=== PATIENT | male | born 1955 | race Caucasian/White ===

== ENCOUNTER 2023-06-06 04:34 | Outpatient (CLI) | payer MEDICARE, SELFPAY ==
[2023-06-06 12:17] LABS: Absolute Basophil Count 0.04 10^3/uL (0.0-0.2); Absolute Eosinophil Count 0.15 10^3/uL (0.0-0.7); Absolute Lymphocyte Count 0.98 10^3/uL (1.2-3.4); Absolute Neutrophil Count 2.05 10^3/uL (1.2-6.7); Basophils % 1.1; Eosinophils % 4.3; HCT 43.8 % (40.0-50.0); HGB 14.4 g/dL (13.5-17.5); Lymphocytes % 27.8; MCH 29.8 pg (27.0-33.0); MCHC 32.9 % (32.0-36.0); MCV 91 fL (80-95); MPV 10.2 fL (8.0-11.0); Monocytes % 8.5; Neutrophils % 58.3; Platelet Count 180 10^3/uL (130-400); RBC 4.84 10^6/uL (4.36-5.78); RDW 12.3 % (11.8-14.1); RDW-SD 40.1 fL; WBC 3.52 10^3/uL (4.4-10.8)
[2023-06-06 12:48] LABS: ALT 39 U/L (16-63); AST 29 U/L (15-37); Albumin 3.5 g/dL (3.4-5.0); Alkaline Phosphatase 59 U/L (46-116); Bilirubin, Direct 0.1 mg/dL (0.0-0.2); Bilirubin, Total 0.4 mg/dL (0.2-1.0); Total Protein 7.5 g/dL (6.4-8.2)
[2023-06-06 13:04] LABS: Calculated LDL 111 mg/dL (<100); Cholesterol 184 mg/dL (<200); HDL Cholesterol 58 mg/dL (40-60); Triglyceride 75 mg/dL (<150)
== END 2023-06-06 04:35 | disposition home or self-care (01) ==
LOC: LOS 04:34
PROVIDERS: PCP Nurse Practitioner Family; Visit Provider Nurse Practitioner Family
DX: E78.5 Hyperlipidemia, unspecified (principal); K75.4 Autoimmune hepatitis
CPT/HCPCS: 36415; 80061; 80076; 85025

== ENCOUNTER → 2023-08-28 10:58 | Outpatient (BNVA) | payer MEDICARE, SELFPAY | PROVIDERS: PCP Nurse Practitioner Family; Referring Provider Nurse Practitioner Family; Visit Provider Physical Therapy Assistant | DX: Z12.11 Encounter for screening for malignant neoplasm of colon (principal) ==

== ENCOUNTER 2023-09-11 07:41 | Day surgery (SDC) | payer MEDICARE, SELFPAY ==
--- NOTE | 2023-09-10 21:29 | PDOC.DSDIS_ITS ---
Date of service: 09/11/23 Time of Service: 09:31 Discharge Plan Disposition Patient Disposition: Home Condition: Good Discharge Details Reason For Visit: screening colonocsopy Attending Provider: Donald Talavera Primary Care Provider: Sylvia Moyer Home Meds and New Rx's Prescriptions: Continued ibuprofen [Advil] 200 mg tablet 200 mg PO Q6H PRN pyridostigmine bromide 60 mg tablet 60 mg PO TID simvastatin 40 mg tablet 40 mg PO DAILY mycophenolate mofetil 500 mg tablet 1,500 mg PO BID sildenafil 50 mg tablet 50 mg PO DAILY PRN Rx Instructions: administer 30 minutes to 4 hours before activity cholecalciferol (vitamin D3) 25 mcg (1,000 unit) capsule 25 mcg PO DAILY loratadine [Allergy Relief (loratadine)] 10 mg tablet 10 mg PO DAILY multivitamin Tablet 1 tab PO DAILY Discontinued bisacodyl [Dulcolax (bisacodyl)] 5 mg tablet,delayed release (DR/EC) 5 mg PO ONCE Qty: 4 0RF Rx Instructions: Take per colonoscopy instructions provided by ordering providers office polyethylene glycol 3350 17 gram/dose powder 17 g PO ONCE Qty: 238 0RF Rx Instructions: Take per colonoscopy instructions provided by ordering providers office Discharge Instructions Instructions: Diverticulosis (GEN), Diverticulosis Diet (GEN) Additional Instructions: Juan, we were able to complete your colonoscopy today without any difficulty. I did not see any tumors or polyps. Incidentally, you do have some diverticulosis. Diverticula are weak spots in the colon wall. They typically accumulate as we get older. These can become infected and inflamed, but hopefully that will never bother you. My general advice to patients with diverticulosis is to make sure that she maintain a healthy amount of fiber in your diet, staying regular, well-hydrated, and avoiding symptoms of constipation. Have attached a little bit of information here regarding divertic ular disease. With a negative colonoscopy again today, the recommendation is for a follow-up in 10 years. If you have any questions in the meantime, please do not hesitate to ask. 1. If tolerated, consume a soft, low fiber diet for 1-2 days. 2. Do not drive, drink alcohol, operate machinery, make critical decisions, or do activities that require coordination or balance for 24 hours. 3. Because air was put into your colon during the procedure, expelling air from your rectum (passing gas or farting) is normal. 4. You may not have a bowel movement for 1-3 days because of the colonoscopy pr ep. This is normal. 5. Go directly to the emergency room if you notice any of the following: Develop chills (warm to touch), or if you have a thermometer and your temperature is above 101 Difficulty breathing or difficultly swallowing Persistent vomiting Severe abdominal pain, other than gas cramps Severe chest pain Black, tarry stools Any bleeding ? exceeding one tablespoon 6. Call your physician if the site where your intravenous was started becomes red, swollen, painful, and warm to touch. 7. Your physician has reviewed your pre-procedure medications. Please continue to take those medications as previously ordered. You will be given specific information/education regarding any changes to your medications before leaving. Activity:: Activity as Tolerated Diet:: As Tolerated Discharge Orders Discharge Orders: Discharge Order (Routine); Ordered 09/10/23 Ordered By: Donald Talavera DS: Diagnosis Discharge Diagnosis (1) Screen for colon cancer: Status: Acute Asessment and Plan: Sigmoid diverticulosis, otherwise negative screening colonoscopy
--- NOTE | 2023-09-10 21:30 | W.COLOREPORT ---
Date of service: 09/11/23 Time of Service: 09:33 Colonoscopy Report Date of procedure: 09/11/23 Pre-op diagnosis general: screening colonoscopy Post-op diagnosis procedure note: other (Diverticulosis) Procedure: Colonoscopy Surgeon: Donald Talavera Anesthesia Type: General:No Airway Estimated blood loss (mL): 0 Pathology: none sent Complications: None Disposition: same day Indications: Juan is a 68 year old man who needs his next screening colonoscopy Prep: Miralax/Dulcolax Procedure Start Time: 09:00 Procedure End Time: 09:20 Retraction Time: 9 Findings: Diverticulosis Procedure Description: After the induction of anesthetic care, and with the patient in left lateral decubitus position, I began by performing an external anorectal exam.? Perineum and skin were normal, as was the anal verge.? There was no evidence of external hemorrhoids.? Next, I performed a digital rectal exam.? I did not appreciate any abnormal findings.? Next, I advanced a colonoscope into the rectal vault.? I performed retroflexion.? This was normal.? Using insufflation, I then advanced the colonoscope beyond the rectal folds and into the sigmoid colon before advancing towards the cecum.? There was extensive sigmoid diverticulosis. I was able to maintain the true lumen without much difficulty. The colon is long and a little bit tortuous. the scope was noted to be in the cecum by identification of the ileocecal valve and appendiceal orifice.? I then began withdrawing the colonoscope using repeated irrigation as necessary for full evaluation of the colonic mucosa. ?Once the scope was withdrawn to the level of the rectum, great care was taken to examine portions of the rectal folds.? I did not see any signs of tumors, polyps, or any other abnormalities aside from the diverticulosis mentioned above. Finally, the scope was withdrawn and the patient was brought to the same-day surgery recovery unit as the anesthetic wore off. ?The findings and instructions were shared with the patient prior to discharge. [place] Bowel Prep [place] Bowel Prep Right Colon: 3 Left Colon: 2 Transverse Colon: 3 Total Score: 8
[2023-09-11 08:04] VITALS: BP 140/80; PULSE 76; RESP 16; TEMP 36.3; O2SAT 76
[2023-09-11] MEDS: Lactated Ringers 1,000 ML 80 ML IV (08:07)
[2023-09-11 08:50] VITALS: BMI 25.0
--- NOTE | 2023-09-11 08:50 | ANES.PREOP_ITS ---
General Info Date of Service Date Performed: 09/11/23 Height: 5 ft 10 in Weight: 79 kg Body Mass Index (BMI): 25.0 Surgical Procedure: Operation Date: 09/11/23 09:05 Proposed Procedure Side Surgeon aide Talavera MD Meds Allergies and Home Medications Allergies Allergy/AdvReac Type Severity Reaction Status Date / Time Mercaptopurine Analogues Allergy Intermediate Nausea Unverified 09/11/23 08:02 (Thiopurin azathioprine Allergy Unknown Unverified 09/11/23 08:02 Home Medication Medication Instructions Recorded cholecalciferol (vitamin D3) 25 25 mcg PO DAILY 01/16/23 mcg (1,000 unit) capsule ibuprofen 200 mg tablet (Advil) 200 mg PO Q6H PRN 01/16/23 loratadine 10 mg tablet (Allergy 10 mg PO DAILY 01/16/23 Relief (loratadine)) multivitamin 1 tab PO DAILY 01/16/23 mycophenolate mofetil 500 mg tablet 1,500 mg PO BID 01/16/23 pyridostigmine bromide 60 mg tablet 60 mg PO TID 01/16/23 sildenafil 50 mg tablet 50 mg PO DAILY PRN 01/16/23 simvastatin 40 mg tablet 40 mg PO DAILY 01/16/23 Current Visit Medications: Current Medications Generic Name Dose Route Start Last Admin Trade Name Freq PRN Reason Stop Dose Admin Hyoscyamine Sulfate 0.125 mg 09/10/23 21:32 Hyoscyamine 0.125 Mg Sl/Oral/Chew SL 10/10/23 21:31 DIRECTED PRN Ringer's Solution 1,000 mls @ 80 mls/hr 09/11/23 06:00 09/11/23 08:07 IV 09/11/23 23:59 80 mls/hr INFUSION MELO Administration IV Miscellaneous Supplies 1 each 09/11/23 06:00 Iv Access IV 09/11/23 23:59 DIRECTED MELO Ondansetron HCl 4 mg 09/10/23 21:32 Ondansetron 4 Mg/2 Ml Vial IVP 10/10/23 21:31 Q4H PRN PRN Nausea / Vomiting Sodium Chloride 0 ml 09/11/23 06:00 Normal Saline Flush 10 Ml Syr IV 09/11/23 23:59 PRN PRN Sodium Chloride 0 ml 09/11/23 06:00 Normal Saline 10 Ml Vial IJ 09/11/23 23:59 DIRECTED PRN Sterile Water 0 ml 09/11/23 06:00 Water,Injection,Sterile 10 Ml Vial IJ 09/11/23 23:59 DIRECTED PRN [facility] Active Problems Active Problems: Problem Status Onset Code Screen for colon cancer Z12.11 Snoring R06.83 Environmental allergies Z91.09 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 Raynauds syndrome I73.00 Osteopenia M85.80 Hepatitis, autoimmune K75.4 Hyperlipidemia E78.5 Medical History Medical History Fracture of left leg Compound spiral fracture of lower left leg Nasal turbinate hypertrophy Nasal septal deviation Ptosis Renal cyst Tobacco Smoking/Tobacco Use Status: Former Tobacco Use Passive smoking exposure: Yes Second hand exposure: Yes Alcohol Alcohol Intake: former Substance Use Substance use: Never Substance use type: does not use Vital Signs and Lab Results Vital Signs Most Recent Vital Signs in EMR: Most Recent Vital Signs Temp Pulse Resp BP Pulse Ox 36.3 C L 76 16 140/80 76 L 09/11/23 08:04 09/11/23 08:04 09/11/23 08:04 09/11/23 08:04 09/11/23 08:04 Lab Results Blood Type / Crossmatch: No Data to Display Complete Blood Count: White Blood Count 4.05 10^3/uL (4.4-10.8) L 09/04/23 17:02 Red Blood Count 4.53 10^6/uL 09/04/23 17:02 Hemoglobin 13.6 g/dL 09/04/23 17:02 Hematocrit 40.2 % 09/04/23 17:02 Platelet Count 174 10^3/uL 09/04/23 17:02 Complete Metabolic Panel: Albumin 4.4 g/dL 09/04/23 17:06 Liver Function Panel: Alanine Aminotransferase (ALT/SGPT) 20 U/L 09/04/23 17: 08 Aspartate Amino Transf (AST/SGOT) 32 U/L 09/04/23 17:08 Coagulation Panel: No Data to Display Cardiac Panel: No Data to Display Arterial Blood Gas: No Data to Display Venous Blood Gas: No Data to Display Pancreas Panel: No Data to Display Thyroid Panel: No Data to Display Infectious Disease: No Data to Display Blood Cultures: No Data to Display Toxicology Panel: No Data to Display Anesthesia Assessment and Plan Anesthesia History Personal History: No History of Anesthesia Complications Family History: No Family History of Anesthesia Complications Exercise Tolerance Exercise Tolerance: Metabolic Equivalents>4 Pertinent Negatives Pertinent Negatives: No Symptoms of GERD Cardiac & Pulmonary Exam Cardiac Exam: Normal S1/S2 Heart Sounds Pulmonary Exam: Clear Bilateral Breath Sounds Implantable Cardiac Device Does patient have a Pacemaker or an ICD?: No Airway Exam Known Difficult Airway: No Mallampati Class: 2 Mouth Opening: Normal (> 3cm) Thyromental Distance: Greater than 3 cm Neck Range of Motion: Full ROM Neck Circumference: Normal Teeth Condition: Normal Dentition ASA Classification ASA Score: ASA 2 Emergency Case?: No NPO Status NPO Status: NPO Clears >2 hours, Solids >8 hours Anesthesia Plan Resuscitation Status: Full Code Anesthesia Technique: General Anesthesia Airway Planned: Natural Airway Monitors Used: Standard Monitors
[2023-09-11 09:29] VITALS: BP 77/52; PULSE 72; RESP 16; TEMP 36.6; O2SAT 98
--- NOTE | 2023-09-11 09:37 | W.ANESPOSTOP ---
Postoperative Evaluation Date, Time and Location Date Performed: 09/11/23 Time Performed: 09:37 Patient Location: Day Surgery Unit Vital Signs Most Recent Imported Vital Signs: Most Recent Vital Signs Temp Pulse Resp BP Pulse Ox 36.6 C 72 16 77/52 L 98 09/11/23 09:29 09/11/23 09:29 09/11/23 09:29 09/11/23 09:29 09/11/23 09:29 Pain Score Most Recent Pain Score: Most Recent Pain Score Pain Level 0 09/11/23 08:04 Assessment Mental Status: Awake (Alert & Oriented to Patient Baseline) Airway and Respiratory Function: Patent airway with normal (patient baseline) respiratory exam Cardiovascular Function: Hemodynamically Stable Hydration Status: Adequately Hydrated Nausea & Vomiting: No Nausea or Vomiting Pain: Pt. Denies Any Pain Peripheral Nerve Block: Patient did not receive a nerve block
[2023-09-11 10:00] VITALS: BP 103/69; PULSE 63; RESP 16; TEMP 36.3; O2SAT 100
== END 2023-09-11 10:43 | disposition home or self-care (01) ==
LOC: SUR 07:41
PROVIDERS: PCP Nurse Practitioner Family; Visit Provider Surgery
PROC: 0DJD8ZZ Inspection of Lower Intestinal Tract, Via Natural or Artificial Opening Endoscopic (ICD-10-PCS; CPT 45378; principal; 2023-09-11 09:00)
DX: Z12.11 Encounter for screening for malignant neoplasm of colon (principal); K57.30 Diverticulosis of large intestine without perforation or abscess without bleeding
CPT/HCPCS: G0121; J2704

== ENCOUNTER 2023-12-03 05:35 | Outpatient (CLI) | payer MEDICARE, SELFPAY ==
[2023-12-03 13:43] LABS: Abs Immature Grans 0.01 10^3/uL (0.0-0.06); Absolute Basophil Count 0.03 10^3/uL (0.0-0.2); Absolute Eosinophil Count 0.05 10^3/uL (0.0-0.7); Absolute Lymphocyte Count 1.09 10^3/uL (1.2-3.4); Absolute Monocyte Count 0.28 10^3/uL (0.1-0.8); Absolute Neutrophil Count 2.92 10^3/uL (1.2-6.7); Basophils % 0.7; Eosinophils % 1.1; HCT 40.1 % (40.0-50.0); HGB 13.1 g/dL (13.5-17.5); Immature Grans % 0.2; Lymphocytes % 24.9; MCH 29.5 pg (27.0-33.0); MCHC 32.7 % (32.0-36.0); MCV 90 fL (80-95); MPV 9.3 fL (8.0-11.0); Monocytes % 6.4; Neutrophils % 66.7; Platelet Count 212 10^3/uL (130-400); RBC 4.44 10^6/uL (4.36-5.78); RDW 12.2 % (11.8-14.1); RDW-SD 39.9 fL; WBC 4.38 10^3/uL (4.4-10.8)
[2023-12-03 14:14] LABS: ALT 22 U/L (16-63); AST 18 U/L (15-37); Albumin 3.5 g/dL (3.4-5.0); Alkaline Phosphatase 66 U/L (46-116); Anion Gap 7.5 mmol/L (3-11); BUN 22 mg/dL (7-18); Bilirubin, Total 0.4 mg/dL (0.2-1.0); CO2 27.5 mmol/L (21.0-32.0); CREATININE 1.1 mg/dL (0.70-1.30); Calcium 9.1 mg/dL (8.5-10.1); Chloride 108 mmol/L (98-107); Estimated GFR 72.22 (mL/min/1.73m2); Glucose 163 mg/dL (74-106); Potassium 4.3 mmol/L (3.5-5.1); Sodium 143 mmol/L (136-145); Total Protein 6.8 g/dL (6.4-8.2)
[2023-12-03 14:23] LABS: Bilirubin, Direct 0.1 mg/dL (0.0-0.2)
== END 2023-12-03 05:36 | disposition home or self-care (01) ==
LOC: LBO 05:35
PROVIDERS: PCP Nurse Practitioner Family; Visit Provider Nurse Practitioner Family
DX: K75.4 Autoimmune hepatitis (principal)
CPT/HCPCS: 36415; 80053; 82248; 85025

== ENCOUNTER 2024-02-10 05:04 | Outpatient (CLI) | payer MEDICARE, SELFPAY ==
[2024-02-10 15:18] LABS: NT-proBNP 293 pg/mL (<300)
[2024-02-12 12:10] LABS: Lyme Ab w Rflx to Lyme Confirm Negative (Negative)
[2024-02-13 21:06] LABS: Anaplasma phagocytophilum Negative (Negative); B. miyamotoi PCR Negative (Negative); Babesia divergens/MO-1 Negative (Negative); Babesia duncani Negative (Negative); Babesia microti Negative (Negative); Ehrlichia chaffeensis Negative (Negative); Ehrlichia ewingii/canis Negative (Negative); Ehrlichia muris eauclairensis Negative (Negative)
== END 2024-02-10 05:05 | disposition home or self-care (01) ==
LOC: LBO 05:04
PROVIDERS: PCP Nurse Practitioner Family; Visit Provider Nurse Practitioner Family
DX: R06.02 Shortness of breath (principal); R53.83 Other fatigue; R00.2 Palpitations
CPT/HCPCS: 36415; 87798; 83880; 86618

== ENCOUNTER → 2024-02-18 01:07 | Outpatient (CLI) | payer MEDICARE, SELFPAY ==
[2024-02-18 07:38] LABS: Abs Immature Grans 0.01 10^3/uL (0.0-0.06); Absolute Basophil Count 0.03 10^3/uL (0.0-0.2); Absolute Eosinophil Count 0.07 10^3/uL (0.0-0.7); Absolute Lymphocyte Count 1.06 10^3/uL (1.2-3.4); Absolute Monocyte Count 0.35 10^3/uL (0.1-0.8); Absolute Neutrophil Count 2.56 10^3/uL (1.2-6.7); Basophils % 0.7 %; Eosinophils % 1.7 %; HCT 43.1 % (40.0-50.0); HGB 14.2 g/dL (13.5-17.5); Immature Grans % 0.2 %; MCHC 32.9 % (32.0-36.0); MCV 91 fL (80-95); Monocytes % 8.6 %; Neutrophils % 62.8 %; Platelet Count 165 10^3/uL (130-400); RBC 4.74 10^6/uL (4.36-5.78); RDW 12.2 % (11.8-14.1); RDW-SD 40.6 fL; WBC 4.08 10^3/uL (4.4-10.8)
[2024-02-18 07:49] LABS: BUN 18 mg/dL (7-18); CREATININE 1.1 mg/dL (0.70-1.30); Estimated GFR 72.22 (mL/min/1.73m2)
[2024-02-18] MEDS: Barium Sulfate 2% W/V-Berry Smoothie 450 ML BTL PO ×2 (08:58→08:59)
[2024-02-18] MEDS: Normal Saline - Diluent 50 ML VIAL IJ (09:04)
[2024-02-18] MEDS: Omnipaque 350 MG/ML 500 ML BTL-Imaging package 100 ML IJ (09:05)
== END ==
PROVIDERS: PCP Nurse Practitioner Family; Visit Provider Psychiatry & Neurology Neurology
DX: G70.00 Myasthenia gravis without (acute) exacerbation (principal); R53.1 Weakness; R53.82 Chronic fatigue, unspecified; D84.9 Immunodeficiency, unspecified
CPT/HCPCS: 84520; 82565; 85025

== ENCOUNTER → 2024-02-27 01:16 | Outpatient (CLI) | payer MEDICARE, SELFPAY ==
--- NOTE | 2024-02-27 | DI.CT_ITS ---
Exam(s) CT CHEST/ABD/PEL W EXAM: CT CHEST/ABD/PEL W CLINICAL HISTORY: WEAKNESS, MYASTHENIA GRAVIS, CHRONIC FATIGUE, IMMUNOSUPPRESSION. TECHNIQUE: Imaging Protocol: Axial computed tomography images with coronal and sagittal reformatted images were created and reviewed CONTRAST MATERIAL: Intravenous: Omnipaque 350 Contrast volume:100 ml Oral: Yes. Oral contrast was also administered for bowel opacification. COMPARISON: No exams were available for comparison FINDINGS: CHEST: LUNGS: There are benign-appearing thin walled bullae in both lung schilling the largest measuring 5.4 x 4.0 cm (right middle lobe). These do not contain fluid levels. There are no pulmonary infiltrates n or pleural effusions. There is a small 4 millimeter noncalcified nodule in the left lower lobe (seri es 4, image 32) no other lung nodules evident. MEDIASTINUM: There is no hilar nor mediastinal adenopathy. No evidence of thymus mass, given the hist ory here. Thyroid gland exhibits normal size and no obvious nodules. CARDIAC: Heart size is normal. There is no pericardial effusion.Caliber of the thoracic aorta is wit hin normal limits. OSSEOUS: No significant osseous lesions.No fractures.. Other: Mild bilateral gynecomastia ABDOMEN: There is no ascites. LIVER: There are no focal hepatic lesions nor dilatation of intrahepatic ducts. GALLBLADDER/BILIARY: No obvious gallbladder pathology. CBD is not dilated. PANCREAS: No evidence of pancreatic mass nor dilatation of the pancreatic duct. SPLEEN: Spleen is not enlarged. There are no intrasplenic lesions. Splenic and portal veins are lam nt. ADRENALS: There are no significant adrenal masses. KIDNEYS: No calculi nor hydronephrosis. No solid renal masses. Small benign cortical cysts noted in b oth kidneys which should not require further imaging workup. ABDOMINAL AORTA: No significant abdominal aortic aneurysm. 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 There is no right-sided IVC below the renal vein level. LYMPH NODES: There is no retroperitoneal nor paraaortic adenopathy. ABDOMINAL WALL: No evidence of significant anterior abdominal wall nor inguinal hernia. GI: There is sigmoid diverticulosis. No obvious acute diverticulitis. No free fluid. PELVIS: LYMPH NODES: There is no intrapelvic nor inguinal adenopathy. GI: No evidence of appendicitis. URINARY BLADDER: No calculi nor masses evident REPRODUCTIVE: Mildly enlarged and lobulated prostate gland which indents into the bladder base. OSSEOUS: No significant osseous lesions. Multilevel disc space narrowing L3-4 and L4-5 levels. No l isthesis. No fractures. IMPRESSION: 1. Mildly enlarged prostate gland which indents the bladder base. Recommend PSA testing. 2. 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 This left-sided IV C drains into the left renal vein. 3. There is a small 4 millimeter nodule in the left lower lobe. No other lung nodules evident. Mult iple benign appearing bullae are noted in both lungs. 4. No mediastinal masses, given the history of myasthenia gravis. 5. Sigmoid diverticulosis. No evidence of acute diverticulitis. RADIATION DOSE DELIVERED: 1,618.82mGy.cm Total DLP DATA REPOSITORY: All CT scans at this facility are submitted to the National Radiology Data Registry (NRDR) Dose Index Registry (DIR) with the [employer] ([employer]). RADIATION OPTIMIZATION: All CT scans at this facility use at least one of these dose optimization te chniques: automated exposure control; mA and/or kV adjustment per patient size (includes targeted exa ms where dose is matched to clinical indication); or iterative reconstruction.
[2024-02-27] MEDS: Barium Sulfate 2% W/V-Creamy Vanilla Smoothie 450 ML BTL PO ×2 (07:36→07:37)
[2024-02-27] MEDS: Omnipaque 350 MG/ML 500 ML BTL-Imaging package IJ (09:30)
[2024-02-27] MEDS: Normal Saline - Diluent 50 ML VIAL IJ (09:31)
== END ==
PROVIDERS: PCP Nurse Practitioner Family; Visit Provider Nurse Practitioner Family
DX: R53.1 Weakness (principal); G70.00 Myasthenia gravis without (acute) exacerbation; R53.82 Chronic fatigue, unspecified; C37 Malignant neoplasm of thymus; N40.0 Benign prostatic hyperplasia without lower urinary tract symptoms; Q26.1 Persistent left superior vena cava; K57.30 Diverticulosis of large intestine without perforation or abscess without bleeding
CPT/HCPCS: 74177; 71260

== ENCOUNTER 2024-03-09 08:07 | Emergency (ER) | payer MEDICARE, SELFPAY ==
[2024-03-09] VITALS (49 sets, daily range): BP systolic 137–181; BP diastolic 61–98; PULSE 61–82; RESP 11–26; TEMP 36.6–36.8; O2SAT 98–100
--- NOTE | 2024-03-09 08:00 | RT.EKG_ITS ---
APPROVED REPORT Exam: Resting ECG Reason for Exam: cardiac issues Patient Location: E HR:72 bpm ECG Measurements Heart Rate 72 AXIS [place] 179 P 79 QRSd 102 QRS -25 QT 361 T 72 QTc 396 Conclusion Sinus rhythm...normal P axis, V-rate 60- 99 Anteroseptal infarct, old...Q >40mS, V1-V2
[2024-03-09 08:51] LABS: Lactate 0.9 mmol/L (0.6-1.4)
[2024-03-09 08:52] LABS: Abs Immature Grans 0.01 10^3/uL (0.0-0.06); Absolute Basophil Count 0.02 10^3/uL (0.0-0.2); Absolute Eosinophil Count 0.07 10^3/uL (0.0-0.7); Absolute Lymphocyte Count 0.79 10^3/uL (1.2-3.4); Absolute Monocyte Count 0.34 10^3/uL (0.1-0.8); Absolute Neutrophil Count 1.77 10^3/uL (1.2-6.7); Basophils % 0.7 %; Eosinophils % 2.3 %; HCT 41.7 % (40.0-50.0); Immature Grans % 0.3 %; Lymphocytes % 26.3 %; MCH 29.9 pg (27.0-33.0); MCHC 33.6 % (32.0-36.0); MCV 89 fL (80-95); MPV 9.6 fL (8.0-11.0); Monocytes % 11.3 %; Neutrophils % 59.1 %; Platelet Count 183 10^3/uL (130-400); RBC 4.68 10^6/uL (4.36-5.78); RDW 12.3 % (11.8-14.1); RDW-SD 39.7 fL
[2024-03-09] MEDS: Normal Saline 1,000 ML 1000 ML IV (08:57)
[2024-03-09 09:11] LABS: Bilirubin Negative (Negative); Blood Negative (Negative); Clarity Clear (Clear); Glucose Negative (Negative); Ketones Negative (Negative); Leukocyte Esterase Negative (Negative); Nitrite Negative (Negative); Specific Gravity >= 1.030 (1.005-1.025); Urobilinogen 0.2 mg/dL (Up to 0.2); pH 5.5 (5-8)
--- NOTE | 2024-03-09 09:27 | ED.GENADUL_ITS ---
Discharge Plan Disposition Patient Disposition: Home Condition: Stable Discharge Details Clinical Impression: Weakness Primary Care Provider: Sylvia Moyer ED Provider: Paco Clarke Home Meds and New Rx's Prescriptions: Continued ibuprofen [Advil] 200 mg tablet 200 mg PO Q6H PRN pyridostigmine bromide 60 mg tablet 60 mg PO TID mycophenolate mofetil 500 mg tablet 1,500 mg PO BID sildenafil 50 mg tablet 50 mg PO DAILY PRN Rx Instructions: administer 30 minutes to 4 hours before activity cholecalciferol (vitamin D3) 25 mcg (1,000 unit) capsule 25 mcg PO DAILY loratadine [Allergy Relief (loratadine)] 10 mg tablet 10 mg PO DAILY multivitamin Tablet 1 tab PO DAILY simvastatin 40 mg tablet 40 mg PO DAILY Qty: 90 3RF Discharge Instructions Instructions: Weakness Additional Instructions: You were seen in the emergency department for generalized weakness and shortness of breath feeling of heaviness in your chest. Your cardiac workup is negative, the CTA of your head and neck showed no acute stroke or other brain abnormality, you have mild plaques in your carotid arteries which is expected for your age. I suspect your weakness is due to chronic myasthenia gravis and is worse after significant exertion. I consulted with [facility] neurology and you have an infusion of IVIG next week. They recommend you follow-up with this plan and continue with outpatient care, please return to the emergency department for any increasing shortness of breath or muscle weakness that is becoming more severe as myasthenic crisis has a high risk for intubation. Referrals: Sylvia Moyer NP [Primary Care Provider] - Discharge Data Discharge Date/Time-TO BE ENTERED AT DEPARTURE: 03/09/24 13:28 HPI General Date/Time Provider Initiated Documentation: 03/09/24 08:16 . HPI Narrative: 68 year-old male presents to ED today by POV/ambulating with a chief complaint of generalized weakness, weak after doing yardwork all day yesterday- some heaviness to chest but not painful, having shaky hands and arms with onset after exertional yardwork yesterday. Patient has myasthenia gravis. Quality described as generalized weakness, no radiation to syncope, visual changes, nausea/vomiting, diaphoresis, endorses SOB with exertion, denies overt chest pain, denies fevers, denies tick bites. Severity is described as moderate. Palliating factors include nothing specific attempted. Provoking factors include nothing specific. Events leading up to the incident/Associated Symptoms: Patient is followed by [facility] Neurology. Patient not anticoagulated. Related Data Home Medications ?Medication ?Instructions ?Recorded ?Confirmed cholecalciferol (vitamin D3) 25 25 mcg PO DAILY 01/16/23 03/09/24 mcg (1,000 unit) capsule ibuprofen 200 mg tablet (Advil) 200 mg PO Q6H PRN 01/16/23 03/09/24 loratadine 10 mg tablet (Allergy 10 mg PO DAILY 01/16/23 03/09/24 Relief (loratadine)) multivitamin 1 tab PO DAILY 01/16/23 03/09/24 mycophenolate mofetil 500 mg tablet 1,500 mg PO BID 01/16/23 03/09/24 pyridostigmine bromide 60 mg tablet 60 mg PO TID 01/16/23 03/09/24 sildenafil 50 mg tablet 50 mg PO DAILY PRN 01/16/23 03/09/24 simvastatin 40 mg tablet 40 mg PO DAILY #90 tabs 12/23/23 03/09/24 Previous Rx's ?Medication ?Instructions ?Recorded simvastatin 40 mg tablet 40 mg PO DAILY #90 tabs 12/23/23 Allergies Allergy/AdvReac Type Severity Reaction Status Date / Time Mercaptopurine Analogues Allergy Intermediate Nausea Unverified 03/09/24 08:22 (Thiopurin azathioprine Allergy Unknown Nausea Unverified 03/09/24 08:22 General Stated Complaint: GenMedical LIANNE: 3 Review of Systems All systems reviewed & are unremarkable except as noted in HPI and below Exam Narrative Exam Narrative: GENERAL APPEARANCE: Well-nourished, non-toxic, awake and alert, atraumatic, no acute distress. SKIN: Warm, pink, dry, intact, without rashes/lesions/ulcerations. HEAD: Normocephalic, atraumatic, normal hair distribution for gender/age. EYES: Pupils PERRLA, EOMs intact without nystagmus, normal conjunctiva, no exudates on lids/lashes. ENT: Nares patent, no circumoral cyanosis, no facial swelling NECK: Supple, trachea midline, painless cervical ROM. LUNGS/CHEST: Lungs CTA bilaterally- no rhonchi/rales/wheezes diffusely, non- labored respirations, normal A/P diameter, symmetrical expansion, no chest wall deformity HEART (CV/PV): Regular rate and rhythm without murmur, no peripheral edema, no JVD, no carotid bruit. ABDOMEN: Soft, non-distended, no guarding, no tenderness. MSK: Normal ROM, no swelling/deformity to bilateral UEs or LEs, moving all extremities with very mild 4+/5 weakness, no cyanosis, spine midline without tenderness, normal curvature. NEURO: Mental Status AAOx4 - alert to person, place, time, events No facial droop, no forehead involvement, no dysmetria with cerebellar testing Motor: No focal weakness - strength 5/5 in bilateral UEs and LEs, proximal and distal, symmetric. Sensory: sensation intact to light touch globally. Gait normal: patient ambulated without ataxia into ED room. PSYCH: euthymic, cooperative, pleasant, appropriate speech Course Vital Signs Vital signs: Vital Signs Temperature 36.8 C 03/09/24 08:11 Pulse 73 03/09/24 08:11 Respiratory Rate 12 03/09/24 08:11 Blood Pressure 155/78 H 03/09/24 08:11 Pulse Oximetry 100 03/09/24 08:11 Temperature 36.6 C 03/09/24 09:18 Temperature Source Oral 03/09/24 09:18 Pulse 62 03/09/24 09:18 Pulse 66 03/09/24 09:09 Respiratory Rate 18 03/09/24 09:18 Respiratory Effort Normal, Non-Labored 03/09/24 09:14 Respiratory Depth Normal 03/09/24 09:14 Blood Pressure 152/75 H 03/09/24 09:18 Blood Pressure Mean 100 03/09/24 09:09 Blood Pressure Position Sitting 03/09/24 09:18 Pulse Oximetry 100 03/09/24 09:18 Oxygen Delivery Method Room Air 03/09/24 09:18 Oxygen Flow Rate 0 03/09/24 08:11 Pain Level 1 03/09/24 08:11 Lab/Test Results Lab/Test Results: Laboratory Tests Range/Units 03/09/24 03/09/24 03/09/24 08:27 08:42 08:50 WBC (4.4-10.8) 10^3/uL 3.00 L RBC (4.36-5.78) 10^6/uL 4.68 Hgb (13.5-17.5) g/dL 14.0 Hct (40.0-50.0) % 41.7 MCV (80-95) fL 89 MCH (27.0-33.0) pg 29.9 MCHC (32.0-36.0) % 33.6 RDW (11.8-14.1) % 12.3 Plt Count (130-400) 10^3/uL 183 MPV (8.0-11.0) fL 9.6 Immature Gran % % 0.3 Neutrophils % % 59.1 Lymphocytes % % 26.3 Monocytes % % 11.3 Eosinophils % % 2.3 Basophils % % 0.7 Nucleated RBC % (0.0-0.3) % 0.0 Absolute Neutrophils (1.2-6.7) 10^3/uL 1.77 Absolute Lymphocytes (1.2-3.4) 10^3/uL 0.79 L Absolute Monocytes (0.1-0.8) 10^3/uL 0.34 Absolute Eosinophils (0.0-0.7) 10^3/uL 0.07 Absolute Basophils (0.0-0.2) 10^3/uL 0.02 VBG Lactate (0.6-1.4) mmol/L 0.9 Sodium Cancelled Potassium Cancelled Chloride Cancelled Carbon Dioxide Cancelled Anion Gap Cancelled BUN Cancelled Creatinine Cancelled Est GFR (CKD-EPI 2020) Cancelled Glucose Cancelled Calcium Cancelled Magnesium Cancelled Total Bilirubin Cancelled AST Cancelled ALT Cancelled Alkaline Phosphatase Cancelled Troponin I Cancelled Cancelled Total Protein Cancelled Albumin Cancelled Lipase Cancelled TSH Cancelled Cancelled Urine Color (Yellow) Yellow Urine Clarity (Clear) Clear Urine pH (5-8) 5.5 Ur Specific [place] (1.005-1.025) >= 1.030 H Urine Protein (Neg-Trace) mg/dL Negative Urine Ketones (Negative) mg/dL Negative Urine Blood (Negative) Negative Urine Nitrite (Negative) Negative Urine Bilirubin (Negative) Negative Urine Urobilinogen (Up to 0.2) mg/dL 0.2 Ur Leukocyte Esterase (Negative) Negative Urine Glucose (Negative) mg/dL Negative Medical Decision Making This dictation utilizes [id number] dictation software and may contain unedited grammatical errors. 68 year-old male presents to ED today by POV/ambulating with a chief complaint of generalized weakness, weak after doing yardwork all day yesterday- some heaviness to chest but not painful, having shaky hands and arms with onset after exertional yardwork yesterday. Patient has myasthenia gravis. Quality described as generalized weakness, no radiation to syncope, visual changes, nausea/vomiting, diaphoresis, endorses SOB with exertion, denies overt chest pain, denies fevers, denies tick bites. Severity is described as moderate. Palliating factors include nothing specific attempted. Provoking factors include nothing specific. Events leading up to the incident/Associated Symptoms: Patient is followed by [facility] Neurology. Patients' medical history: Myasthenia gravis, Raynaud's, osteopenia, autoimmune hepatitis, hyperlipidemia, Sjogren's syndrome. Family and social history: Noncontributory, no recent travel or sick contacts, tries to stay active. Pertinent exam findings / vital signs include generalized mild weakness 4+/5 upper extremities, NIH: 0, no dysmetria, no focal asymmetric weakness, benign cardiopulmonary exam, no carotid bruit, benign abdomen, nontoxic vitals, afebrile. Differential / pathologies of concern include ACS, tickborne illness, electrolyte abnormality/dehydration, myasthenia gravis, myasthenic crisis. Diagnostic studies of: -CBC, ABG, CMP, troponin, lipase, TSH, UA, tick and Lyme panel, lactate, magnesium, EKG, CTA head and neck. NIF by RT. -ABG is benign, there is no retention of CO2 or decreased O2 -CBC shows leukopenia without anemia, low lymphocytes -CMP shows no actionable electrolyte abnormalities -Magnesium within normal limits -lactate negative -Serial troponins negative -Lipase within normal limits -TSH within normal limits -UA shows no evidence of UTI -CTA head and neck shows no acute abnormality, no stroke -EKG is sinus rhythm at 72 bpm with normal axis and intervals, no ST changes of ischemia, consistent with priors Interventions of: -1 L IV fluids. -RT evaluated his NIF, maxed out our spirometers which go to -40cm H2O -They state we do not have ability due to equipment capability to measure VC here at [facility]. ED Course/Assessment/Plan: 68-year-old patient seen with progressive weakness worse after working outside all day, has myasthenia gravis, stroke workup is negative and cardiac workup is negative I do suspect he is having progressive chronic weakness due to his autoimmune condition of myasthenia gravis, I did speak with his [facility] neurology provider and he does have IVIG infusion scheduled for next week. His NIFs indicated no myasthenic crisis at this time, I counseled the patient on strict return criteria for any further exhaustion of respiratory effort but to continue with outpatient plan. Patient was comfortable with this disposition. Patient had a negative cardiac workup, there is no signs of infection he does have a low lymphocytes possible weakness of viral syndrome though he is hemodynamically stable and in no acute respiratory distress, denies respiratory symptoms, has no actionable electrolyte abnormalities. Findings not consistent with myasthenic crisis, stroke, acute coronary syndrome, arrhythmia, profound electrolyte abnormality, infection. Disposition of Weakness. Patient verbalized understanding of the plan and return to ED criteria and engaged in shared decision making. Medical Records Medical records reviewed: Yes I reviewed the patient's medical records. Imaging Data Radiologic Study: Attestation: I personally reviewed and interpreted this imaging study as follows: Imaging: CT Scan Radiologist's impression: EXAM: CT BRAIN NECK CTA CLINICAL HISTORY: dizziness, numbness, onset yesterday. TECHNIQUE: Imaging Protocol: Axial CT angiography was performed with multi- slice acquisition and multi-planar and/or 3D reconstructions. CONTRAST MATERIAL: Intravenous: Omnipaque 350 Contrast volume:structured data in ml COMPARISON: CT CT CHEST/ABD/PEL W from 02/27/2024 FINDINGS: CTA Neck W: Aortic arch anatomy: The aortic arch anatomy is conventional and there is no significant stenosis at the origin of the great vessels off of the aortic arch. No intimal flap evident. Anterior circulation: Both common carotid arteries ascend with normal luminal diameters. At the level the carotid bulbs and proximal internal carotid arteries there is minimal plaque without hemodynamically significant stenosis evident. Above this level the internal carotid arteries appear unremarkable on both sides the neck as well as within the skull base-carotid canals. Posterior circulation: Both vertebral arteries originate in conventional fashion off of the subclavian arteries and there is no obvious stenosis at the origin of the vertebral arteries. Both vertebral arteries are patent within the foramen transverse area, with the right vertebral artery being dominant no evidence of thrombosis nor vertebral artery dissection. Both vertebral arteries contribute to the formation of the basilar artery at the skull base. CTA Brain W: Anterior circulation: Both internal carotid arteries are patent in the skull base-carotid canals as well as within the cavernous sinuses. The supraclinoid aspects of the ICAs are patent. Both A1 segments are patent as are the anterior cerebral arteries and there is no evidence of aneurysm at the level of the anterior communicating artery. Both middle cerebral arteries are patent with no evidence of significant stenosis nor intraluminal thrombus. There also no aneurysms of these vessels. Posterior circulation: The basilar artery is a relatively thin vessel. Distally it gives off posterior cerebral arteries which exhibits thin P1 segments as both P2 segments are fed by posterior communicating arteries on both sides the [id number] (persistent circulation). There is no evidence of aneurysm at the tip of the basilar artery nor elsewhere in the [id number]-[id number]. CT BRAIN: There is no evidence of intracranial hemorrhage, mass effect, or shift of midline structures. There are no extra-axial fluid collections. Ventricles are not enlarged or shifted. There are no ring enhancing lesions in the brain and no abnormal meningeal enhancement. IMPRESSION: 1. Patent carotid arteries in the neck. No hemodynamically significant stenosis. 2. Patent vertebral arteries. The right vertebral artery is dominant. 3. Patent intracranial arteries. Persistent circulation as described above, with posterior communicating arteries on both sides the [id number]-[id number]-Kbypjk. 4. No ring enhancing lesions in the brain. No abnormal meningeal enhancement. No obvious infarct. No hemorrhage. If clinically indicated follow-up MRI with diffusion imaging can be performed. Called by myself to ER provider Lab Data Lab results reviewed: Yes I reviewed the patient's lab results. Labs: Laboratory Tests Range/Units 03/09/24 03/09/24 03/09/24 08:27 08:42 08:50 WBC (4.4-10.8) 10^3/uL 3.00 L RBC (4.36-5.78) 10^6/uL 4.68 Hgb (13.5-17.5) g/dL 14.0 Hct (40.0-50.0) % 41.7 MCV (80-95) fL 89 MCH (27.0-33.0) pg 29.9 MCHC (32.0-36.0) % 33.6 RDW (11.8-14.1) % 12.3 Plt Count (130-400) 10^3/uL 183 MPV (8.0-11.0) fL 9.6 Immature Gran % % 0.3 Neutrophils % % 59.1 Lymphocytes % % 26.3 Monocytes % % 11.3 Eosinophils % % 2.3 Basophils % % 0.7 Nucleated RBC % (0.0-0.3) % 0.0 Absolute Neutrophils (1.2-6.7) 10^3/uL 1.77 Absolute Lymphocytes (1.2-3.4) 10^3/uL 0.79 L Absolute Monocytes (0.1-0.8) 10^3/uL 0.34 Absolute Eosinophils (0.0-0.7) 10^3/uL 0.07 Absolute Basophils (0.0-0.2) 10^3/uL 0.02 ABG Sample Site ABG pH (7.35-7.45) ABG pCO2 (35-45) mmHg ABG pO2 (80-105) mmHg ABG HCO3 (22-26) mmol/L ABG Total CO2 (23-27) mmol/L ABG O2 Saturation (95-98) % ABG Base Excess (-2-3) mmol/L VBG Lactate (0.6-1.4) mmol/L 0.9 Oxygen Liter Flow L Sodium Cancelled Potassium Cancelled Chloride Cancelled Carbon Dioxide Cancelled Anion Gap Cancelled BUN Cancelled Creatinine Cancelled Est GFR (CKD-EPI 2020) Cancelled Glucose Cancelled Calcium Cancelled Magnesium Cancelled Total Bilirubin Cancelled AST Cancelled ALT Cancelled Alkaline Phosphatase Cancelled Troponin I Cancelled Cancelled Total Protein Cancelled Albumin Cancelled Lipase Cancelled TSH Cancelled Cancelled Urine Color (Yellow) Yellow Urine Clarity (Clear) Clear Urine pH (5-8) 5.5 Ur Specific [place] (1.005-1.025) >= 1.030 H Urine Protein (Neg-Trace) mg/dL Negative Urine Ketones (Negative) mg/dL Negative Urine Blood (Negative) Negative Urine Nitrite (Negative) Negative Urine Bilirubin (Negative) Negative Urine Urobilinogen (Up to 0.2) mg/dL 0.2 Ur Leukocyte Esterase (Negative) Negative Urine Glucose (Negative) mg/dL Negative Range/Units 03/09/24 03/09/24 03/09/24 09:06 12:15 12:40 WBC (4.4-10.8) 10^3/uL RBC (4.36-5.78) 10^6/uL Hgb (13.5-17.5) g/dL Hct (40.0-50.0) % MCV (80-95) fL MCH (27.0-33.0) pg MCHC (32.0-36.0) % RDW (11.8-14.1) % Plt Count (130-400) 10^3/uL MPV (8.0-11.0) fL Immature Gran % % Neutrophils % % Lymphocytes % % Monocytes % % Eosinophils % % Basophils % % Nucleated RBC % (0.0-0.3) % Absolute Neutrophils (1.2-6.7) 10^3/uL Absolute Lymphocytes (1.2-3.4) 10^3/uL Absolute Monocytes (0.1-0.8) 10^3/uL Absolute Eosinophils (0.0-0.7) 10^3/uL Absolute Basophils (0.0-0.2) 10^3/uL ABG Sample Site Left Radial ABG pH (7.35-7.45) 7.41 ABG pCO2 (35-45) mmHg 37 ABG pO2 (80-105) mmHg 100 ABG HCO3 (22-26) mmol/L 23 ABG Total CO2 (23-27) mmol/L 21 L ABG O2 Saturation (95-98) % 99 H ABG Base Excess (-2-3) mmol/L -2 VBG Lactate (0.6-1.4) mmol/L Oxygen Liter Flow L Sodium 141 Potassium 4.4 Chloride 108 H Carbon Dioxide 27.5 Anion Gap 5.5 BUN 18 Creatinine 1.1 Est GFR (CKD-EPI 2020) 72.22 Glucose 96 Calcium 9.1 Magnesium 1.9 Total Bilirubin 0.66 AST 18 ALT 20 Alkaline Phosphatase 52 Troponin I < 50 < 50 Total Protein 6.5 Albumin 3.5 Lipase 53 TSH 3.05 Urine Color (Yellow) Urine Clarity (Clear) Urine pH (5-8) Ur Specific [place] (1.005-1.025) Urine Protein (Neg-Trace) mg/dL Urine Ketones (Negative) mg/dL Urine Blood (Negative) Urine Nitrite (Negative) Urine Bilirubin (Negative) Urine Urobilinogen (Up to 0.2) mg/dL Ur Leukocyte Esterase (Negative) Urine Glucose (Negative) mg/dL Quality:SDOH Health Related Social Needs: No Data to Display PFSH All Active Problems (Updated 03/09/24 @ 13:06 by GUSTABO Varghese) Weakness (Acute) Screen for colon cancer (Acute) Snoring (Acute) Environmental allergies (Acute) Ocular myasthenia (Acute) Raynauds syndrome (Acute) Osteopenia (Acute) Hepatitis, autoimmune (Acute) Hyperlipidemia (Acute) Medical History (Updated 03/09/24 @ 13:06 by GUSTABO Varghese) Fracture of left leg Compound spiral fracture of lower left leg Nasal turbinate hypertrophy Nasal septal deviation Ptosis Renal cyst Surgical History (Updated 09/16/23 @ 10:42 by Allison Dee) History of colonoscopy (~08/2023) Family History (Updated 01/16/23 @ 09:53 by Teresa Garay) Mother Heart disease Hyperlipidemia Sister No problems noted. Brother Cancer Unspecified Brother No problems noted. Social History Smoking/Tobacco Use Status: Former Tobacco Use tobacco type: cigarettes Quit Date: 08/25/79 Tobacco: How many years used: 15 Second Hand Exposure: Yes Smoking risk assessment performed?: Yes Alcohol Intake: former Drug use: Never Substance use type: does not use Caregiver/Support person: No Household members: spouse Housing: house Communication Needs: None Do you need help understanding health information?: Rarely Pets and animals: No Sexually active: Yes Do you think of yourself as: straight/heterosexual Current gender identity: male What is your relationship status?: How often do you talk on the phone with friends or family?: once per week How often do you get together with friends or relatives?: once per week How often do you attend yazidism or confucianism services?: 1-3 times per year Do you belong to any clubs or organized social groups?: yes Panel score (0-1 are the most socially isolated patients): 2 What type of physical activity do you participate in: walking Duration: < 15 minutes/day Frequency: 1-2 times per week Gloria/Anabaptist: Lutheran Special gloria needs: No Seatbelt use: always Drive intox or ride w/intox drivers' cash clerk: No Do you feel safe at home: Yes Do you feel safe in your relationship?: Yes
[2024-03-09 09:35] LABS: ALT 20 U/L (16-63); AST 18 U/L (15-37); Albumin 3.5 g/dL (3.4-5.0); Alkaline Phosphatase 52 U/L (46-116); Anion Gap 5.5 mmol/L (3-11); BUN 18 mg/dL (7-18); Bilirubin, Total 0.66 mg/dL (0.2-1.0); CO2 27.5 mmol/L (21.0-32.0); CREATININE 1.1 mg/dL (0.70-1.30); Calcium 9.1 mg/dL (8.5-10.1); Chloride 108 mmol/L (98-107); Estimated GFR 72.22 (mL/min/1.73m2); Glucose 96 mg/dL (74-106); Lipase 53 U/L (16-77); Magnesium 1.9 mg/dL (1.8-2.4); Potassium 4.4 mmol/L (3.5-5.1); Sodium 141 mmol/L (136-145); TSH (W/Ref FT4) 3.05 uIU/mL (0.36-3.74); Total Protein 6.5 g/dL (6.4-8.2); Troponin I < 50 ng/L (< or =60)
[2024-03-09] MEDS: Omnipaque 350 MG/ML 100 ML BTL 85 ML IJ (10:34)
[2024-03-09] MEDS: Normal Saline - Diluent 50 ML VIAL IJ (10:36)
--- NOTE | 2024-03-09 10:40 | DI.CT_ITS ---
Exam(s) CT BRAIN NECK CTA EXAM: CT BRAIN NECK CTA CLINICAL HISTORY: dizziness, numbness, onset yesterday. TECHNIQUE: Imaging Protocol: Axial CT angiography was performed with multi-slice acquisition and mu lti-planar and/or 3D reconstructions. CONTRAST MATERIAL: Intravenous: Omnipaque 350 Contrast volume:structured data in ml COMPARISON: CT CT CHEST/ABD/PEL W from 02/27/2024 FINDINGS: CTA Neck W: Aortic arch anatomy: The aortic arch anatomy is conventional and there is no significant stenosis at the origin of the great vessels off of the aortic arch. No intimal flap evident. Anterior circulation: Both common carotid arteries ascend with normal luminal diameters. At the level the carotid bulbs and proximal internal carotid arteries there is minimal plaque without hemodynamically significant stenosis evident. Above this level the internal carotid arteries appear unremarkable on both sides the neck as well as within the skull base-carotid canals. Posterior circulation: Both vertebral arteries originate in conventional fashion off of the subclavian arteries and there is no obvious stenosis at the origin of the vertebral arteries. Both vertebral arteries are patent within the foramen transverse area, with the right vertebral arter y being dominant no evidence of thrombosis nor vertebral artery dissection. Both vertebral arteries contribute to the formation of the basilar artery at the skull base. CTA Brain W: Anterior circulation: Both internal carotid arteries are patent in the skull base-carotid canals as well as within the cave rnous sinuses. The supraclinoid aspects of the ICAs are patent. Both A1 segments are patent as are the anterior cer ebral arteries and there is no evidence of aneurysm at the level of the anterior communicating artery . Both middle cerebral arteries are patent with no evidence of significant stenosis nor intraluminal th rombus. There also no aneurysms of these vessels. Posterior circulation: The basilar artery is a relatively thin vessel. Distally it gives off posterior cerebral arteries wh ich exhibits thin P1 segments as both P2 segments are fed by posterior communicating arteries on both sides the xmiyll-vk-[id number] (persistent circulation). There is no evidence of aneurysm at the tip of the basilar artery nor elsewhere in the isigit-qb-Ntjg is. CT BRAIN: There is no evidence of intracranial hemorrhage, mass effect, or shift of midline structures. There are no extra-axial fluid collections. Ventricles are not enlarged or shifted. There are no ring enh ancing lesions in the brain and no abnormal meningeal enhancement. IMPRESSION: 1. Patent carotid arteries in the neck. No hemodynamically significant stenosis. 2. Patent vertebral arteries. The right vertebral artery is dominant. 3. Patent intracranial arteries. Persistent circulation as described above, with posterior com municating arteries on both sides the xbjegg-wu-Eplbrr. 4. No ring enhancing lesions in the brain. No abnormal meningeal enhancement. No obvious infarct. No hemorrhage. If clinically indicated follow-up MRI with diffusion imaging can be performed. Called by myself to ER provider RADIATION DOSE DELIVERED: Total DLP DATA REPOSITORY: All CT scans at this facility are submitted to the National Radiology Data Registry (NRDR) Dose Index Registry (DIR) with the [employer] (ACR). RADIATION OPTIMIZATION: All CT scans at this facility use at least one of these dose optimization te chniques: automated exposure control; mA and/or kV adjustment per patient size (includes targeted exa ms where dose is matched to clinical indication); or iterative reconstruction.
[2024-03-09 12:39] LABS: Troponin I < 50 ng/L (< or =60)
[2024-03-09 12:43] LABS: BE -2 mmol/L (-2-3); HCO3 23 mmol/L (22-26); pCO2 37 mmHg (35-45); pH 7.41 (7.35-7.45); pO2 100 mmHg (80-105); sO2 99 % (95-98); tCO2 21 mmol/L (23-27)
[2024-03-09 12:44] LABS: Site Left Radial
== END 2024-03-09 13:28 | disposition home or self-care (01) ==
PROVIDERS: Emergency Provider Physician Assistant; PCP Nurse Practitioner Family
DX: R53.1 Weakness (principal); G70.00 Myasthenia gravis without (acute) exacerbation; I73.00 Raynaud's syndrome without gangrene; M35.00 Sjogren syndrome, unspecified; E78.5 Hyperlipidemia, unspecified
CPT/HCPCS: 36415; 70496; 70498; 80053; 82805; 83690; 93005; 96360; 99285; 36600; 81003; 83605; 83735; 84443; 84484; 85025; 93010; 99284; J3490

== ENCOUNTER 2024-03-11 06:55 | Outpatient (CLI) | payer MEDICARE, SELFPAY ==
--- NOTE | 2024-03-11 09:22 | W.CARDEVENT ---
Date of service: 03/11/24 Time of Service: 09:22 Cardiac Event Recorder Referring Provider:: Sylvia Moyer Indications:: Palpitations and shortness of breath Cardiac Event Note: This is a cardiac event monitor. Patient was monitored for 13 days and 18 hours Rhythm throughout was sinus. Average heart rate was 69. Minimum was 42, maximum 120 There are moderately frequent ventricular ectopic beats. There were multiple brief runs of nonsustained ventricular tachycardia with the longest of which was 5 beats in duration There were rare atrial premature beats. There were very rare brief self-limited atrial runs There was no atrial fibrillation no high-grade AV block, no pauses greater than 3 seconds. Symptoms were reported. Some correlated to PVCs, others to sinus rhythm
== END 2024-03-11 06:56 | disposition home or self-care (01) ==
LOC: CARDOPNVT 06:55
PROVIDERS: PCP Nurse Practitioner Family; Visit Provider Internal Medicine Cardiovascular Disease
DX: I49.3 Ventricular premature depolarization (principal); R00.2 Palpitations; R06.02 Shortness of breath; R53.83 Other fatigue
CPT/HCPCS: 93246; 93248

== ENCOUNTER 2024-03-23 03:08 | Outpatient (RCR) | payer MEDICARE, SELFPAY ==
[2024-03-15] MEDS: diphenhydrAMINE 25 MG CAP 50 MG PO (09:37)
[2024-03-15] MEDS: Acetaminophen 325 MG TAB 650 MG PO (09:37)
[2024-03-15] MEDS: Normal Saline 500 ML 999 ML IV (09:40)
[2024-03-15 09:45] VITALS: BP 153/82; PULSE 67; RESP 17; TEMP 36.5; O2SAT 97
[2024-03-15 10:30] VITALS: BP 158/72; PULSE 64; RESP 17; TEMP 36.3; O2SAT 100
[2024-03-15 10:45] VITALS: BP 146/73; PULSE 70; RESP 17; TEMP 36.3; O2SAT 97
[2024-03-15 11:15] VITALS: BP 160/72; PULSE 67; RESP 17; TEMP 36.4; O2SAT 100
[2024-03-15 11:45] VITALS: BP 147/71; PULSE 67; RESP 17; TEMP 36.4; O2SAT 100
[2024-03-15 12:16] VITALS: BP 152/72; PULSE 64; RESP 17; TEMP 36.4; O2SAT 98
[2024-03-16] MEDS: Normal Saline 500 ML 999 ML IV (10:01)
[2024-03-16] MEDS: Normal Saline Flush 10 ML SYR IVP (10:01)
[2024-03-16] MEDS: diphenhydrAMINE 25 MG CAP 50 MG PO (10:05)
[2024-03-16] MEDS: Acetaminophen 325 MG TAB 650 MG PO (10:06)
[2024-03-16 10:10] VITALS: BP 127/77; PULSE 64; RESP 18; TEMP 36.5; O2SAT 100
[2024-03-16 10:50] VITALS: BP 154/82; PULSE 63; RESP 17; TEMP 36.8; O2SAT 100
[2024-03-16 11:05] VITALS: BP 138/67; PULSE 63; RESP 18; TEMP 36.8; O2SAT 99
[2024-03-16 11:35] VITALS: BP 154/90; PULSE 61; RESP 18; TEMP 36.8; O2SAT 99
[2024-03-16 12:05] VITALS: BP 124/86; PULSE 61; RESP 18; TEMP 36.8; O2SAT 99
[2024-03-16 12:35] VITALS: BP 152/90; PULSE 58; RESP 16; TEMP 36.7; O2SAT 99
[2024-03-17] MEDS: Normal Saline 500 ML 999 ML IV (09:06)
[2024-03-17] MEDS: Normal Saline Flush 10 ML SYR IVP (09:08)
[2024-03-17] MEDS: diphenhydrAMINE 25 MG CAP 50 MG PO (09:13)
[2024-03-17] MEDS: Acetaminophen 325 MG TAB 650 MG PO (09:13)
[2024-03-17 09:45] VITALS: BP 148/71; PULSE 76; RESP 17; TEMP 36.7; O2SAT 97
[2024-03-17 10:00] VITALS: BP 153/84; PULSE 67; RESP 17; TEMP 36.7; O2SAT 95
[2024-03-17 10:15] VITALS: BP 163/91; PULSE 69; RESP 17; TEMP 36.7; O2SAT 97
[2024-03-17 10:45] VITALS: BP 146/84; PULSE 60; RESP 17; TEMP 36.5; O2SAT 100
[2024-03-17 11:15] VITALS: BP 142/83; PULSE 67; RESP 17; TEMP 36.9; O2SAT 99
[2024-03-17 11:45] VITALS: BP 147/78; PULSE 66; RESP 17; TEMP 36.7; O2SAT 97
[2024-03-23] MEDS: Normal Saline 500 ML 999 ML IV (10:30)
[2024-03-23 10:55] VITALS: BP 143/76; PULSE 71; RESP 18; TEMP 36.7; O2SAT 100
[2024-03-23] MEDS: Acetaminophen 325 MG TAB 650 MG PO (11:00)
[2024-03-23] MEDS: Normal Saline Flush 10 ML SYR IVP (11:01)
[2024-03-23] MEDS: diphenhydrAMINE 25 MG CAP 50 MG PO (11:10)
[2024-03-23 11:20] VITALS: BP 123/81; PULSE 71; RESP 18; TEMP 36.5; O2SAT 100
[2024-03-23 11:59] VITALS: BP 131/77; PULSE 67; RESP 18; TEMP 36.3; O2SAT 100
[2024-03-23 12:30] VITALS: BP 136/72; PULSE 70; RESP 18; TEMP 36.5; O2SAT 100
[2024-03-23 13:00] VITALS: BP 131/75; PULSE 71; RESP 18; TEMP 36.5; O2SAT 100
[2024-03-23 18:26] LABS: PSA, Screening 3.3 ng/mL (<=6.5)
== END 2024-03-24 23:59 | disposition home or self-care (01) ==
LOC: INF 03:08
PROVIDERS: PCP Nurse Practitioner Family; Visit Provider Family Medicine
DX: G70.00 Myasthenia gravis without (acute) exacerbation (principal); N40.0 Benign prostatic hyperplasia without lower urinary tract symptoms
CPT/HCPCS: 36415; 84153; 96365; 96366; J1569

== ENCOUNTER 2024-04-24 12:08 | Emergency (ER) | payer MEDICARE, SELFPAY ==
[2024-04-24] VITALS (12 sets, daily range): BP systolic 123–138; BP diastolic 59–79; PULSE 68–72; RESP 10–18; TEMP 36.4–36.5; O2SAT 98–100
--- NOTE | 2024-04-24 13:00 | DI.RAD_ITS ---
Exam(s) XR CHEST 2V PA LATERAL EXAM: XR CHEST 2V PA LATERAL CLINICAL HISTORY: shortness of breath. TECHNIQUE: 2D digital imaging was performed. COMPARISON: No exams were available for comparison FINDINGS: 2 views: Heart size is normal. The mediastinum is not widened. Lungs are clear. No infiltrates nor pleural effusions. IMPRESSION: No acute pulmonary findings. DATA REPOSITORY: RADIATION DOSE DELIVERED:
--- NOTE | 2024-04-24 13:00 | RT.EKG_ITS ---
APPROVED REPORT Exam: Resting ECG Reason for Exam: weakness Patient Location: E HR:64 bpm ECG Measurements Heart Rate 64 AXIS OH 179 P 71 QRSd 98 QRS -6 QT 385 T 61 QTc 398 Conclusion Sinus rhythm...normal P axis, V-rate 60- 99 Ventricular premature complex...V complex w/ short R-R interval Anterior infarct, old...Q >40mS, abnormal ST-T, V2-V5 Narrow complex normal sinus rhythm at a rate of 64. Left axis deviation no signs of LVH based on vol tage criteria. Intervals within normal limits. Mild ST segment depressions in V4 through V6. These appear slightly more pronounced compared to prior. Prior dated last month.
[2024-04-24 13:19] LABS: Bilirubin Negative (Negative); Blood Negative (Negative); Clarity Clear (Clear); Glucose Negative (Negative); Ketones Negative (Negative); Leukocyte Esterase Negative (Negative); Nitrite Negative (Negative); Specific Gravity 1.015 (1.005-1.025); Urobilinogen 0.2 mg/dL (Up to 0.2); pH 5.5 (5-8)
[2024-04-24 13:48] LABS: Abs Immature Grans 0.02 10^3/uL (0.0-0.06); Absolute Basophil Count 0.02 10^3/uL (0.0-0.2); Absolute Eosinophil Count 0.02 10^3/uL (0.0-0.7); Absolute Lymphocyte Count 0.71 10^3/uL (1.2-3.4); Absolute Monocyte Count 0.24 10^3/uL (0.1-0.8); Absolute Neutrophil Count 3.24 10^3/uL (1.2-6.7); Basophils % 0.5 %; Eosinophils % 0.5 %; HCT 39.5 % (40.0-50.0); HGB 12.9 g/dL (13.5-17.5); Immature Grans % 0.5 %; Lymphocytes % 16.7 %; MCH 29.9 pg (27.0-33.0); MCHC 32.7 % (32.0-36.0); MCV 91 fL (80-95); MPV 9.8 fL (8.0-11.0); Monocytes % 5.6 %; Neutrophils % 76.2 %; Platelet Count 190 10^3/uL (130-400); RBC 4.32 10^6/uL (4.36-5.78); RDW 12.4 % (11.8-14.1); WBC 4.25 10^3/uL (4.4-10.8)
[2024-04-24 13:49] LABS: ESR 13 mm/hr (0-20)
[2024-04-24 14:03] LABS: ALT 34 U/L (16-63); AST 27 U/L (15-37); Albumin 3.7 g/dL (3.4-5.0); Alkaline Phosphatase 58 U/L (46-116); Anion Gap 7.3 mmol/L (3-11); BUN 26 mg/dL (7-18); Bilirubin, Total 0.37 mg/dL (0.2-1.0); CO2 28.7 mmol/L (21.0-32.0); CREATININE 1.1 mg/dL (0.70-1.30); Calcium 9.6 mg/dL (8.5-10.1); Chloride 104 mmol/L (98-107); Estimated GFR 71.77 (mL/min/1.73m2); Glucose 97 mg/dL (74-106); Potassium 4.1 mmol/L (3.5-5.1); Sodium 140 mmol/L (136-145); Total Protein 7.7 g/dL (6.4-8.2)
[2024-04-24 14:05] LABS: COVID-19 PCR Negative (Negative); Influenza A PCR Negative (Negative); Influenza B PCR Negative (Negative); RSV PCR Negative (Negative)
[2024-04-24 14:08] LABS: Troponin I < 50 ng/L (< or =60)
[2024-04-24 14:13] LABS: TSH (W/Ref FT4) 1.44 uIU/mL (0.36-3.74)
[2024-04-24 14:14] LABS: Source Nasopharynx
--- NOTE | 2024-04-24 14:26 | DI.VRAD_ITS ---
PROCEDURE INFORMATION: Exam: XR Chest Exam date and time: 04/24/2024 1:51 PM Age: 69 years old Clinical indication: Shortness of breath and other: Shortness of breath TECHNIQUE: Imaging protocol: Radiologic exam of the chest. Views: 2 views. COMPARISON: CT CHEST/ABD/PEL W 12/30/2023 09:35 FINDINGS: Lungs: Unremarkable. No consolidation. Pleural spaces: Unremarkable. No pleural effusion. No pneumothorax. Heart/Mediastinum: Unremarkable. No cardiomegaly. Bones/joints: Unremarkable for patient's age. IMPRESSION: No acute cardiopulmonary findings. Dictated and Authenticated by: Rhonda Stephens MD. Ordering:JOEL Alejandra MD
--- NOTE | 2024-04-24 15:14 | ED.GENADUL_ITS ---
Discharge Plan Disposition Patient Disposition: Home Condition: Stable Discharge Details Clinical Impression: Headache Primary Care Provider: Sylvia Moyer ED Provider: Ny Nazario Home Meds and New Rx's Prescriptions: Continued lorazepam 0.5 mg tablet 0.5 mg PO BID MDD 2 tablets PRN (Reason: anxiety) Qty: 30 1RF mirtazapine 7.5 mg tablet 7.5 mg PO QHS Qty: 30 0RF Rx Instructions: prescription initiated by Dr. Andrei Lopez at [facility] [place] on 04/06/24. -hb ibuprofen [Advil] 200 mg tablet 200 mg PO Q6H PRN pyridostigmine bromide 60 mg tablet 60 mg PO TID mycophenolate mofetil 500 mg tablet 1,500 mg PO BID sildenafil 50 mg tablet 50 mg PO DAILY PRN Rx Instructions: administer 30 minutes to 4 hours before activity loratadine [Allergy Relief (loratadine)] 10 mg tablet 10 mg PO DAILY multivitamin Tablet 1 tab PO DAILY simvastatin 40 mg tablet 40 mg PO DAILY Qty: 90 3RF midodrine 5 mg tablet 5 mg PO TID Patient Comments: TAKE ONE TABLET BY MOUTH THREE TIMES A DAY BEFORE MEALS escitalopram oxalate 20 mg tablet 15 mg PO DAILY Discharge Instructions Instructions: Headache, Adult ED Additional Instructions: Please follow-up with your doctor on Friday, your tests today are reassuring and your chest x-ray and diagnostic blood work Please return earlier should you develop fever, persistent headache, stiff neck, or should any new concerns arise ensure that you are consuming at least 8, 8 oz glasses of water daily Referrals: Sylvia Moyer NP [Primary Care Provider] - Discharge Data Discharge Date/Time-TO BE ENTERED AT DEPARTURE: 04/24/24 15:54 HPI General Date/Time Provider Initiated Documentation: 04/24/24 12:46 . HPI Narrative: This 69-year-old male presents with reports of sharp shooting pains in his head x 2 this morning. He states that he had 1 episode at approximately 10:00 followed by a second lasted 1 second each and resolved completely. He states that he had some chills which radiated down at that time. He denies any dizziness or constant headache. He denies any vision change or recent neck trauma. He denies any chest pain or shortness of breath. He denies prior history of similar symptoms in the past. Denies any new medications but does state he recently increase his SSRI. Denies any falls or trauma. Related Data Home Medications ?Medication ?Instructions ?Recorded ?Confirmed ibuprofen 200 mg tablet (Advil) 200 mg PO Q6H PRN 01/16/23 04/24/24 loratadine 10 mg tablet (Allergy 10 mg PO DAILY 01/16/23 04/24/24 Relief (loratadine)) multivitamin 1 tab PO DAILY 01/16/23 04/24/24 mycophenolate mofetil 500 mg tablet 1,500 mg PO BID 01/16/23 04/24/24 pyridostigmine bromide 60 mg tablet 60 mg PO TID 01/16/23 04/24/24 sildenafil 50 mg tablet 50 mg PO DAILY PRN 01/16/23 04/24/24 simvastatin 40 mg tablet 40 mg PO DAILY #90 tabs 12/23/23 04/24/24 lorazepam 0.5 mg tablet 0.5 mg PO BID PRN anxiety #30 tabs 03/22/24 04/24/24 mirtazapine 7.5 mg tablet 7.5 mg PO QHS #30 tabs 04/08/24 04/24/24 escitalopram oxalate 20 mg tablet 15 mg PO DAILY 04/24/24 04/24/24 midodrine 5 mg tablet 5 mg PO TID 04/24/24 04/24/24 Previous Rx's ?Medication ?Instructions ?Recorded simvastatin 40 mg tablet 40 mg PO DAILY #90 tabs 12/23/23 lorazepam 0.5 mg tablet 0.5 mg PO BID PRN anxiety #30 tabs 03/22/24 mirtazapine 7.5 mg tablet 7.5 mg PO QHS #30 tabs 04/08/24 Allergies Allergy/AdvReac Type Severity Reaction Status Date / Time Mercaptopurine Analogues Allergy Intermediate Nausea Unverified 04/24/24 12:16 (Thiopurin azathioprine Allergy Unknown Nausea Unverified 04/24/24 12:16 General Stated Complaint: Headache LIANNE: 3 Exam Narrative Exam Narrative: 69-year-old male in no acute distress, pupils equal round reactive to light and accommodation, extraocular muscles intact, no meningismus, no carotid bruit, lungs clear to auscultation, cardiac rate rhythm regular, alert and oriented x 4, cranial nerves II through XII intact, ambulatory steady gait, negative [id number], negative heel casey, negative pronator drift, distal pulses intact all 4 extremities Course Vital Signs Vital signs: Vital Signs Temperature 36.4 C L 04/24/24 12:12 Pulse 69 04/24/24 12:12 Respiratory Rate 10 L 04/24/24 12:12 Blood Pressure 123/74 04/24/24 12:12 Pulse Oximetry 98 04/24/24 12:12 Temperature 36.4 C L 04/24/24 12:33 Temperature Source Skin 04/24/24 12:33 Pulse 69 04/24/24 12:33 Pulse 68 04/24/24 15:00 Respiratory Rate 16 04/24/24 15:00 Respiratory Effort Normal, Non-Labored 04/24/24 12:33 Blood Pressure 124/59 L 04/24/24 14:09 Blood Pressure Position Sitting 04/24/24 12:33 Pulse Oximetry 98 04/24/24 15:00 Oxygen Delivery Method Room Air 04/24/24 12:33 Oxygen Flow Rate 0 04/24/24 12:33 Pain Level 6 04/24/24 12:33 Lab/Test Results Lab/Test Results: 04/24/24 14:31 Blood Blood Culture - Pending 04/24/24 13:40 Blood Blood Culture - Pending Laboratory Tests Range/Units 04/24/24 04/24/24 04/24/24 12:43 13:06 13:24 WBC (4.4-10.8) 10^3/uL RBC (4.36-5.78) 10^6/uL Hgb (13.5-17.5) g/dL Hct (40.0-50.0) % MCV (80-95) fL MCH (27.0-33.0) pg MCHC (32.0-36.0) % RDW (11.8-14.1) % Plt Count (130-400) 10^3/uL MPV (8.0-11.0) fL Immature Gran % % Neutrophils % % Lymphocytes % % Monocytes % % Eosinophils % % Basophils % % Nucleated RBC % (0.0-0.3) % Absolute Neutrophils (1.2-6.7) 10^3/uL Absolute Lymphocytes (1.2-3.4) 10^3/uL Absolute Monocytes (0.1-0.8) 10^3/uL Absolute Eosinophils (0.0-0.7) 10^3/uL Absolute Basophils (0.0-0.2) 10^3/uL ESR (0-20) mm/hr VBG Lactate Cancelled Sodium (136-145) mmol/L Potassium (3.5-5.1) mmol/L Chloride (98-107) mmol/L Carbon Dioxide (21.0-32.0) mmol/L Anion Gap (3-11) mmol/L BUN (7-18) mg/dL Creatinine (0.70-1.30) mg/dL Est GFR (CKD-EPI 2020) (mL/min/1.73m2) Glucose (74-106) mg/dL Calcium (8.5-10.1) mg/dL Total Bilirubin (0.2-1.0) mg/dL AST (15-37) U/L ALT (16-63) U/L Alkaline Phosphatase (46-116) U/L Troponin I (< or =60) ng/L Total Protein (6.4-8.2) g/dL Albumin (3.4-5.0) g/dL TSH (0.36-3.74) uIU/mL Urine Color (Yellow) Yellow Urine Clarity (Clear) Clear Urine pH (5-8) 5.5 Ur Specific [place] (1.005-1.025) 1.015 Urine Protein (Neg-Trace) mg/dL Negative Urine Ketones (Negative) mg/dL Negative Urine Blood (Negative) Negative Urine Nitrite (Negative) Negative Urine Bilirubin (Negative) Negative Urine Urobilinogen (Up to 0.2) mg/dL 0.2 Ur Leukocyte Esterase (Negative) Negative Urine Glucose (Negative) mg/dL Negative COVID-19 Source Nasopharynx SARS-CoV-2 (PCR) (Negative) Negative Influenza Type A (PCR) (Negative) Negative Influenza Type B (PCR) (Negative) Negative RSV (PCR) (Negative) Negative Range/Units 04/24/24 13:40 WBC (4.4-10.8) 10^3/uL 4.25 L RBC (4.36-5.78) 10^6/uL 4.32 L Hgb (13.5-17.5) g/dL 12.9 L Hct (40.0-50.0) % 39.5 L MCV (80-95) fL 91 MCH (27.0-33.0) pg 29.9 MCHC (32.0-36.0) % 32.7 RDW (11.8-14.1) % 12.4 Plt Count (130-400) 10^3/uL 190 MPV (8.0-11.0) fL 9.8 Immature Gran % % 0.5 Neutrophils % % 76.2 Lymphocytes % % 16.7 Monocytes % % 5.6 Eosinophils % % 0.5 Basophils % % 0.5 Nucleated RBC % (0.0-0.3) % 0.0 Absolute Neutrophils (1.2-6.7) 10^3/uL 3.24 Absolute Lymphocytes (1.2-3.4) 10^3/uL 0.71 L Absolute Monocytes (0.1-0.8) 10^3/uL 0.24 Absolute Eosinophils (0.0-0.7) 10^3/uL 0.02 Absolute Basophils (0.0-0.2) 10^3/uL 0.02 ESR (0-20) mm/hr 13 VBG Lactate Sodium (136-145) mmol/L 140 Potassium (3.5-5.1) mmol/L 4.1 Chloride (98-107) mmol/L 104 Carbon Dioxide (21.0-32.0) mmol/L 28.7 Anion Gap (3-11) mmol/L 7.3 BUN (7-18) mg/dL 26 H Creatinine (0.70-1.30) mg/dL 1.1 Est GFR (CKD-EPI 2020) (mL/min/1.73m2) 71.77 Glucose (74-106) mg/dL 97 Calcium (8.5-10.1) mg/dL 9.6 Total Bilirubin (0.2-1.0) mg/dL 0.37 AST (15-37) U/L 27 ALT (16-63) U/L 34 Alkaline Phosphatase (46-116) U/L 58 Troponin I (< or =60) ng/L < 50 Total Protein (6.4-8.2) g/dL 7.7 Albumin (3.4-5.0) g/dL 3.7 TSH (0.36-3.74) uIU/mL 1.44 Urine Color (Yellow) Urine Clarity (Clear) Urine pH (5-8) Ur Specific [place] (1.005-1.025) Urine Protein (Neg-Trace) mg/dL Urine Ketones (Negative) mg/dL Urine Blood (Negative) Urine Nitrite (Negative) Urine Bilirubin (Negative) Urine Urobilinogen (Up to 0.2) mg/dL Ur Leukocyte Esterase (Negative) Urine Glucose (Negative) mg/dL COVID-19 Source SARS-CoV-2 (PCR) (Negative) Influenza Type A (PCR) (Negative) Influenza Type B (PCR) (Negative) RSV (PCR) (Negative) Medical Decision Making 69-year-old male presenting in no acute distress, recent CT on 815 does not show evidence of acute abnormality, presenting with sharp episodes of pain x 2. Denies any dizziness or weakness. No rashes or lesions. Diagnostic evaluation is reassuring, baseline leukopenia for patient's history of mycophenolate use. No obvious evidence of sepsis or infectious etiology of patient's complaints. Specifically no clinical findings consistent with acute meningitis or encephalitis. Patient is alert and ambulatory. I did order blood cultures as patient is immunosuppressed. Baseline hemoglobin and hematocrit for patient when compared to prior, chest x-ray without acute abnormality, EKG without ischemia or obvious injury. Troponin negative with greater than 3 hours of symptoms. Quality:SDOH Health Related Social Needs: No Data to Display PFSH All Active Problems (Updated 04/24/24 @ 15:15 by GUSTABO Mendez) Headache (Acute) Hypotension (Acute) Anxiety and depression (Chronic) Syncope, near (Acute) Enlarged prostate (Acute) Seen on CT scan in February 2024 Screen for colon cancer (Acute) Snoring (Acute) Environmental allergies (Acute) Ocular myasthenia (Acute) Raynauds syndrome (Acute) Osteopenia (Acute) Hepatitis, autoimmune (Acute) Hyperlipidemia (Acute) Medical History (Updated 04/24/24 @ 15:15 by GUSTABO Mendez) Fracture of left leg Compound spiral fracture of lower left leg Nasal turbinate hypertrophy Nasal septal deviation Ptosis Renal cyst Surgical History (Updated 09/16/23 @ 10:42 by Allison Dee) History of colonoscopy (~08/2023) Family History (Updated 01/16/23 @ 09:53 by Teresa Garay) Mother Heart disease Hyperlipidemia Sister No problems noted. Brother Cancer Unspecified Brother No problems noted. Social History Smoking/Tobacco Use Status: Former Tobacco Use tobacco type: cigarettes Quit Date: 08/25/79 Tobacco: How many years used: 15 Second Hand Exposure: Yes Smoking risk assessment performed?: Yes Alcohol Intake: former Drug use: Never Substance use type: does not use Caregiver/Support person: No Household members: spouse Housing: house Communication Needs: None Do you need help understanding health information?: Rarely Pets and animals: No Sexually active: Yes Do you think of yourself as: straight/heterosexual Current gender identity: male What is your relationship status?: How often do you talk on the phone with friends or family?: once per week How often do you get together with friends or relatives?: once per week How often do you attend jehovah's witness or restorationist services?: 1-3 times per year Do you belong to any clubs or organized social groups?: yes Panel score (0-1 are the most socially isolated patients): 2 What type of physical activity do you participate in: walking Duration: < 15 minutes/day Frequency: 1-2 times per week Gloria/Voodoo: Hindu Special gloria needs: No Seatbelt use: always Drive intox or ride w/intox bulk driver: No Do you feel safe at home: Yes Do you feel safe in your relationship?: Yes
== END 2024-04-24 15:54 | disposition home or self-care (01) ==
PROVIDERS: Emergency Provider Physician Assistant; PCP Nurse Practitioner Family
DX: R51.9 Headache, unspecified (principal)
CPT/HCPCS: 36415; 80053; 85652; 87040; 87637; 93005; 99285; 71046; 81003; 83605; 84443; 84484; 85025; 93010; 99284

== ENCOUNTER 2024-04-30 01:36 | Outpatient (CLI) | payer MEDICARE, SELFPAY ==
--- NOTE | 2024-05-06 18:13 | W.NOCTURNAL ---
Date of service: 04/30/24 Time of Service: 19:30 Nocturnal Oximetry Note: Report: Overnight Oximetry on Room Air without BiPAP. Patient: Juan Eid DOB 1955 Indication: Snoring, myasthenia gravis Ordering provider: Sylvia Moyer Date of study: April 30, 2024 Conditions of test: Test done by [facility] with home oximetry.? Desaturation events were defined as drop in SpO2 by 4% for a minimum duration of 10 seconds. Results: Minimum oxygen saturation (SpO2) was 89% at 2255 hrs. Time spent with SpO2 less than 88% was 0 minutes. The maximum single time with SpO2 less than 88% was 0 seconds. Average pulse was 60 bpm, high pulse was 97 bpm. The technical quality of this test was adequate for clinical decision making. There was some artifact in both the oximetry and pulse leads that did not materially affect these interpretations. Impression: 1.? There was NO clinically significant oxygen desaturation. 2.? This test does NOT meet Medicare criteria for supplemental oxygen. Recommendations: 1.? Clinical correlation is recommended Viktor Colon MD [facility] Pulmonary & Critical Care Medicine
== END 2024-04-30 01:37 | disposition home or self-care (01) ==
LOC: RT 01:36
PROVIDERS: PCP Nurse Practitioner Family; Visit Provider Nurse Practitioner Family
DX: R51.9 Headache, unspecified (principal); R06.83 Snoring; R55 Syncope and collapse; G70.00 Myasthenia gravis without (acute) exacerbation; R41.89 Other symptoms and signs involving cognitive functions and awareness
CPT/HCPCS: 00123; 94762

== ENCOUNTER 2024-05-08 12:17 | Emergency (ER) | payer MEDICARE, SELFPAY ==
[2024-05-08 12:23] VITALS: BP 127/71; PULSE 78; RESP 15; TEMP 36.6; O2SAT 98
[2024-05-08 13:29] LABS: Bilirubin Negative (Negative); Blood Negative (Negative); Clarity Clear (Clear); Glucose Negative (Negative); Ketones Negative (Negative); Leukocyte Esterase Negative (Negative); Nitrite Negative (Negative); Urobilinogen 0.2 mg/dL (Up to 0.2)
[2024-05-08 13:38] LABS: Abs Immature Grans 0.01 10^3/uL (0.0-0.06); Absolute Basophil Count 0.02 10^3/uL (0.0-0.2); Absolute Eosinophil Count 0.03 10^3/uL (0.0-0.7); Absolute Lymphocyte Count 0.73 10^3/uL (1.2-3.4); Absolute Monocyte Count 0.25 10^3/uL (0.1-0.8); Absolute Neutrophil Count 3.17 10^3/uL (1.2-6.7); Basophils % 0.5 %; Eosinophils % 0.7 %; HCT 43.7 % (40.0-50.0); HGB 14.1 g/dL (13.5-17.5); Immature Grans % 0.2 %; Lymphocytes % 17.3 %; MCH 29.9 pg (27.0-33.0); MCHC 32.3 % (32.0-36.0); MCV 93 fL (80-95); MPV 9.9 fL (8.0-11.0); Monocytes % 5.9 %; Neutrophils % 75.4 %; Platelet Count 162 10^3/uL (130-400); RBC 4.72 10^6/uL (4.36-5.78); RDW 12.8 % (11.8-14.1); RDW-SD 43.6 fL; WBC 4.21 10^3/uL (4.4-10.8)
--- NOTE | 2024-05-08 13:41 | ED.GENADUL_ITS ---
Discharge Plan Discharge Details Chief Complaint: PsychEval Primary Care Provider: Sylvia Moyer ED Provider: Yaa Holloway Home Meds and New Rx's Prescriptions: No Action fluoxetine 10 mg capsule 10 mg PO DAILY Qty: 90 1RF ibuprofen [Advil] 200 mg tablet 200 mg PO Q6H PRN pyridostigmine bromide 60 mg tablet 60 mg PO TID mycophenolate mofetil 500 mg tablet 1,500 mg PO BID sildenafil 50 mg tablet 50 mg PO DAILY PRN Rx Instructions: administer 30 minutes to 4 hours before activity loratadine [Allergy Relief (loratadine)] 10 mg tablet 10 mg PO DAILY multivitamin Tablet 1 tab PO DAILY simvastatin 40 mg tablet 40 mg PO DAILY Qty: 90 3RF lorazepam 0.5 mg tablet 0.5 mg PO QID MDD 4 tablets PRN (Reason: anxiety) Qty: 30 1RF mirtazapine 15 mg tablet 15 mg PO QHS Qty: 90 1RF HPI <GUSTABO Mendez - Last Filed: 05/08/24 15:35> General Date/Time Provider Initiated Documentation: 05/08/24 12:22 . HPI Narrative: 69-year-old male with history of ocular myasthenia with progression, autoimmune hepatitis presents with report of new worsening depression and suicidal ideation. Patient states that this has been worsening over the past several weeks. He had a recent hospitalization at [facility] for approximately 2 weeks today and was discharged approximately 6 weeks prior to arrival. He does not have an appointment with psychiatric nurse practitioner until June 21 and his PCP has been attempting to manage his symptoms however he thinks since starting on the fluoxetine, and sometimes have become worse. He was discontinued from escitalopram and transition to fluoxetine 10 mg daily in the past week. He is having intermittent suicidality throughout the day and feeling significantly worsened depression. states that she has not been able to leave the house because she is concerned for Juan's safety. Patient denies any attempts to harm self. He denies any fever or chills or new pain complaints. Related Data Home Medications ?Medication ?Instructions ?Recorded ?Confirmed ibuprofen 200 mg tablet (Advil) 200 mg PO Q6H PRN 01/16/23 05/08/24 loratadine 10 mg tablet (Allergy 10 mg PO DAILY 01/16/23 05/08/24 Relief (loratadine)) multivitamin 1 tab PO DAILY 01/16/23 05/08/24 mycophenolate mofetil 500 mg tablet 1,500 mg PO BID 01/16/23 05/08/24 pyridostigmine bromide 60 mg tablet 60 mg PO TID 01/16/23 05/08/24 sildenafil 50 mg tablet 50 mg PO DAILY PRN 01/16/23 05/08/24 simvastatin 40 mg tablet 40 mg PO DAILY #90 tabs 12/23/23 05/08/24 lorazepam 0.5 mg tablet 0.5 mg PO QID PRN anxiety #30 tabs 04/28/24 05/08/24 mirtazapine 15 mg tablet 15 mg PO QHS #90 tabs 04/28/24 05/08/24 fluoxetine 10 mg capsule 10 mg PO DAILY #90 caps 04/29/24 05/08/24 Previous Rx's ?Medication ?Instructions ?Recorded simvastatin 40 mg tablet 40 mg PO DAILY #90 tabs 12/23/23 lorazepam 0.5 mg tablet 0.5 mg PO QID PRN anxiety #30 tabs 04/28/24 mirtazapine 15 mg tablet 15 mg PO QHS #90 tabs 04/28/24 fluoxetine 10 mg capsule 10 mg PO DAILY #90 caps 04/29/24 Allergies Allergy/AdvReac Type Severity Reaction Status Date / Time Mercaptopurine Analogues Allergy Intermediate Nausea Verified 05/08/24 15:41 (Thiopurin azathioprine Allergy Unknown Nausea Verified 05/08/24 15:41 General Stated Complaint: PsychEval LIANNE: 2 Exam <GUSTABO Mendez Last Filed: 05/08/24 15:35> Narrative Exam Narrative: 69-year-old male presenting with depression and suicidal ideation, history of same, alert, oriented, no acute distress, pupils equal round reactive to light and accommodation, no respiratory distress, cardiac rate rhythm regular, alert and oriented x 4, ambulatory with steady gait, positive suicidal ideation, infection Course <GUSTABO Mendez Last Filed: 05/08/24 15:35> Vital Signs Vital signs: Vital Signs Temperature 36.6 C 05/08/24 12:23 Pulse 78 05/08/24 12:23 Respiratory Rate 15 05/08/24 12:23 Blood Pressure 127/71 05/08/24 12:23 Pulse Oximetry 98 05/08/24 12:23 Temperature 36.6 C 05/08/24 12:23 Temperature Source Tympanic 05/08/24 12:23 Pulse 78 05/08/24 12:23 Respiratory Rate 15 05/08/24 12:23 Respiratory Effort Normal 05/08/24 12:28 Blood Pressure 127/71 05/08/24 12:23 Blood Pressure Position Sitting 05/08/24 12:23 Pulse Oximetry 98 05/08/24 12:23 Pain Level 0 05/08/24 12:23 Lab/Test Results Lab/Test Results: Laboratory Tests Range/Units 05/08/24 05/08/24 13:11 13:32 WBC (4.4-10.8) 10^3/uL 4.21 L RBC (4.36-5.78) 10^6/uL 4.72 Hgb (13.5-17.5) g/dL 14.1 Hct (40.0-50.0) % 43.7 MCV (80-95) fL 93 MCH (27.0-33.0) pg 29.9 MCHC (32.0-36.0) % 32.3 RDW (11.8-14.1) % 12.8 Plt Count (130-400) 10^3/uL 162 MPV (8.0-11.0) fL 9.9 Immature Gran % % 0.2 Neutrophils % % 75.4 Lymphocytes % % 17.3 Monocytes % % 5.9 Eosinophils % % 0.7 Basophils % % 0.5 Nucleated RBC % (0.0-0.3) % 0.0 Absolute Neutrophils (1.2-6.7) 10^3/uL 3.17 Absolute Lymphocytes (1.2-3.4) 10^3/uL 0.73 L Absolute Monocytes (0.1-0.8) 10^3/uL 0.25 Absolute Eosinophils (0.0-0.7) 10^3/uL 0.03 Absolute Basophils (0.0-0.2) 10^3/uL 0.02 Urine Color (Yellow) Yellow Urine Clarity (Clear) Clear Urine pH (5-8) 6.0 Ur Specific [place] (1.005-1.025) 1.010 Urine Protein (Neg-Trace) mg/dL Negative Urine Ketones (Negative) mg/dL Negative Urine Blood (Negative) Negative Urine Nitrite (Negative) Negative Urine Bilirubin (Negative) Negative Urine Urobilinogen (Up to 0.2) mg/dL 0.2 Ur Leukocyte Esterase (Negative) Negative Urine Glucose (Negative) mg/dL Negative Medical Decision Making <GUSTABO Mendez - Last Filed: 05/08/24 15:35> Is a 69-year-old male in no acute distress with suicidal ideation and worsening depression, pending behavioral health consultation with [facility]. Patient is also pending telepsych consultation for medication recommendations. Patient was recently discontinued from escitalopram and placed on fluoxetine, currently taking 10 mg with escalation of symptoms. Diagnostic labs are reassuring and baseline for patient. Significant history for autoimmune hepatitis and myasthenia gravis, daily medications ordered. Patient medically stable and cleared for Friday, pending voluntary placement after consultation with [facility], [facility]. Quality:[facility] Health Related Social Needs: No Data to Display <Yaa Holloway NP - Last Filed: 05/08/24 22:55> Medical Records Medical records reviewed: Yes I reviewed the patient's medical records. Medical records narrative: 1541: Assumed care of patient from Ny MONTEJO, at the time of sign out awaiting Tele-psych and pending voluntary placement for SI. BUNNY has done and finished the consultation via zoom. Med orders are in place. RN is requesting something for patient's acid reflux. Mylanta ordered p.o. 1811: Spoke with tele-health on-call psychiatrist who recommends starting Sertraline 50mg instead of fluoxetine and close monitoring because SI and HI in the past, will stop Fluoxetine and order Sertraline 50mg PO daily. 2112: Spoke with Andrei Byrd sports psychologist at [place] who agrees to accept patient for transfer, Doc to Doc complete. Most likely transport will be in am as transportation at this time is unavailable. Care is to be handed off to oncoming provider SARAH Burrows attending pending admission and transport to psychiatric facility in the a.m. Patient has remained calm cooperative. Hemodynamically stable throughout the remainder of my stay. Lab Data Lab results reviewed: Yes I reviewed the patient's lab results. Labs: Laboratory Tests Range/Units 05/08/24 05/08/24 13:11 13:32 WBC (4.4-10.8) 10^3/uL 4.21 L RBC (4.36-5.78) 10^6/uL 4.72 Hgb (13.5-17.5) g/dL 14.1 Hct (40.0-50.0) % 43.7 MCV (80-95) fL 93 MCH (27.0-33.0) pg 29.9 MCHC (32.0-36.0) % 32.3 RDW (11.8-14.1) % 12.8 Plt Count (130-400) 10^3/uL 162 MPV (8.0-11.0) fL 9.9 Immature Gran % % 0.2 Neutrophils % % 75.4 Lymphocytes % % 17.3 Monocytes % % 5.9 Eosinophils % % 0.7 Basophils % % 0.5 Nucleated RBC % (0.0-0.3) % 0.0 Absolute Neutrophils (1.2-6.7) 10^3/uL 3.17 Absolute Lymphocytes (1.2-3.4) 10^3/uL 0.73 L Absolute Monocytes (0.1-0.8) 10^3/uL 0.25 Absolute Eosinophils (0.0-0.7) 10^3/uL 0.03 Absolute Basophils (0.0-0.2) 10^3/uL 0.02 Sodium (136-145) mmol/L 139 Potassium (3.5-5.1) mmol/L 4.1 Chloride (98-107) mmol/L 106 Carbon Dioxide (21.0-32.0) mmol/L 27.4 Anion Gap (3-11) mmol/L 5.6 BUN (7-18) mg/dL 25 H Creatinine (0.70-1.30) mg/dL 1.1 Est GFR (CKD-EPI 2020) (mL/min/1.73m2) 71.77 Glucose (74-106) mg/dL 82 Calcium (8.5-10.1) mg/dL 10.0 Total Bilirubin (0.2-1.0) mg/dL 0.41 AST (15-37) U/L 26 ALT (16-63) U/L 32 Alkaline Phosphatase (46-116) U/L 63 Total Protein (6.4-8.2) g/dL 7.9 Albumin (3.4-5.0) g/dL 4.1 TSH (0.36-3.74) uIU/mL 1.46 Urine Color (Yellow) Yellow Urine Clarity (Clear) Clear Urine pH (5-8) 6.0 Ur Specific [place] (1.005-1.025) 1.010 Urine Protein (Neg-Trace) mg/dL Negative Urine Ketones (Negative) mg/dL Negative Urine Blood (Negative) Negative Urine Nitrite (Negative) Negative Urine Bilirubin (Negative) Negative Urine Urobilinogen (Up to 0.2) mg/dL 0.2 Ur Leukocyte Esterase (Negative) Negative Urine Glucose (Negative) mg/dL Negative Urine Opiates Screen (Negative) Negative Urine Methadone Screen (Negative) Negative Ur Barbiturates Screen (Negative) Negative Ur Tricyclics Screen (Negative) Negative Ur Amphetamines Screen (Negative) Negative U Benzodiazepines Scrn (Negative) Negative Urine Cocaine Screen (Negative) Negative Ur THC Screen (Negative) Negative [facility] <GUSTABO Mendez - Last Filed: 05/08/24 15:35> All Active Problems (Updated 04/27/24 @ 14:20 by Sylvia Moyer NP) Brain fog (Acute) Headache (Acute) Hypotension (Acute) Anxiety and depression (Chronic) Syncope, near (Acute) Enlarged prostate (Acute) Seen on CT scan in February 2024 Screen for colon cancer (Acute) Snoring (Acute) Environmental allergies (Acute) Ocular myasthenia (Acute) Raynauds syndrome (Acute) Osteopenia (Acute) Hepatitis, autoimmune (Acute) Hyperlipidemia (Acute) Medical History (Updated 04/27/24 @ 14:20 by Sylvia Moyer NP) Fracture of left leg Compound spiral fracture of lower left leg Nasal turbinate hypertrophy Nasal septal deviation Ptosis Renal cyst Surgical History (Updated 09/16/23 @ 10:42 by Allison Dee) History of colonoscopy (~08/2023) Family History (Updated 01/16/23 @ 09:53 by Teresa Garay) Mother Heart disease Hyperlipidemia Sister No problems noted. Brother Cancer Unspecified Brother No problems noted. Social History Smoking/Tobacco Use Status: Former Tobacco Use tobacco type: cigarettes Quit Date: 08/25/79 Tobacco: How many years used: 15 Second Hand Exposure: Yes Smoking risk assessment performed?: Yes Alcohol Intake: former Drug use: Never Substance use type: does not use Caregiver/Support person: No Household members: spouse Housing: house Communication Needs: None Do you need help understanding health information?: Rarely Pets and animals: No Sexually active: Yes Do you think of yourself as: straight/heterosexual Current gender identity: male What is your relationship status?: How often do you talk on the phone with friends or family?: once per week How often do you get together with friends or relatives?: once per week How often do you attend anabaptist or taoism services?: 1-3 times per year Do you belong to any clubs or organized social groups?: yes Panel score (0-1 are the most socially isolated patients): 2 What type of physical activity do you participate in: walking Duration: < 15 minutes/day Frequency: 1-2 times per week Gloria/Synagogue: Jain Special gloria needs: No Seatbelt use: always Drive intox or ride w/intox refuse driver: No Do you feel safe at home: Yes Do you feel safe in your relationship?: Yes Sign Out <GUSTABO Mendez - Last Filed: 05/08/24 15:35> Sign Out Data: Sign Out Comment: pending MH consult and telepsych for med recommendations for worsening depression and SI. Last updated by Ny Nazario PA at 05/08/24 15:24
[2024-05-08 13:46] LABS: *AMPHETAMINES SCREEN URINE Negative (Negative); *BARBITURATES SCREEN URINE Negative (Negative); *BENZODIAZEPINES SCREEN URINE Negative (Negative); Cannabinoids THC Negative (Negative); Cocaine Screen,Urine Negative (Negative); METHADONE URINE SCREEN Negative (Negative); OPIATES URINE SCREEN Negative (Negative); Tricyclic Antidepressants Negative (Negative)
[2024-05-08 14:02] LABS: ALT 32 U/L (16-63); AST 26 U/L (15-37); Albumin 4.1 g/dL (3.4-5.0); Alkaline Phosphatase 63 U/L (46-116); Anion Gap 5.6 mmol/L (3-11); BUN 25 mg/dL (7-18); Bilirubin, Total 0.41 mg/dL (0.2-1.0); CO2 27.4 mmol/L (21.0-32.0); CREATININE 1.1 mg/dL (0.70-1.30); Chloride 106 mmol/L (98-107); Estimated GFR 71.77 (mL/min/1.73m2); Glucose 82 mg/dL (74-106); Potassium 4.1 mmol/L (3.5-5.1); Sodium 139 mmol/L (136-145); TSH (W/Ref FT4) 1.46 uIU/mL (0.36-3.74); Total Protein 7.9 g/dL (6.4-8.2)
[2024-05-08] MEDS: LORazepam 0.5 MG TAB PO (15:38)
[2024-05-08] MEDS: Mylanta Suspension 30 ML CUP PO (18:02)
--- NOTE | 2024-05-08 18:14 | W.TELEPSYCH ---
Date of service: 05/08/24 Time of Service: 18:15 Summary Note PSYCHIATRY CONSULT NOTE: INITIAL EVALUATION Date/Time:?05/08/2024 6:13:46 PM Name:Shawnee Eid :?[id number] Location of the patient:?[facility] ED Consulting Array Clinician:Juan Alcocer Location of the clinician:?[place] Length of Consult:?60 min SUMMARY 69-year-old male, with history of anxiety disorder, depressive disorder, remitted cannabis/alcohol use, history of psychiatric hospitalization, with no current excessive drug use, no history of self-harming/suicidal behavior/violent behavior, referred to hospital by family for suicidal ideation, homicidal ideation. 69 yo male Hx myasthenia, autoimmune hepatitis, depression presented with worsening depression and SI over past several weeks. Recent discharge from [facility] 6 weeks ago. Reports symptoms became worse after transition from escitalopram to fluoxetine this past Friday. reports concern for patient's safety and patient reports not feeling safe at home with the SI/HI. Long discussion with patient and regarding management options and risks/benefits (including medication). At this time, patient meets inpatient hospitalization criteria. Recommend switching from fluoxetine to sertraline given the concern related to symptom worsening with fluoxetine and monitor clinically. Patient and agreeable to voluntary inpatient psychiatric hospitalization. Optimization of other medical issues per primary team. All questions/concerns addressed with patient, family, and hospital staff.Patient is at elevated risk of danger to self. Patient presently meets criteria for inpatient psychiatric hospitalization. Working Diagnoses:? F33.2 Major depressive disorder, recurrent severe without psychotic features; F41.9 Anxiety disorder, unspecified ; [id number] Suicidal ideations Rule Out Diagnoses:? CPT Codes:?72534 - Psychiatric Diagnostic Evaluation with Medical Services PLAN Disposition:?Voluntary admission when medically stable. Patient understands recommendation for psychiatric admission and consents. Re-consult psychiatry/screening if patient requests discharge. Observation level ? Psychiatric 1:1 needed??Initiate psych 1:1 OR Close observation per hospital protocol Work-up:? Pharmacological:? Recommend discontinuing fluoxetine and initiating sertraline 50mg qAM. Restart other outpatient medications. Is patient psychotic? - No; Informed consent: Discussed risks and benefits of the above recommended psychiatric medications with patient, who demonstrated understanding and gave express informed consent to take the above medications as documented. Follow up needed while in the hospital??Q24h, Mood symptoms/inpatient hospitalization Other:? Discussed benefits of sleep, exercise, and meditation for anxiety/depression If questions arise about the psychiatric care of this patient, please call the [facility]?to request a follow-up consult. ?Please do not contact me individually through the EMR chat as I am not?regularly logged on to?this system. The psychiatrist for the follow-up visit may be a different psychiatrist Discussed plan with onsite engineering team supervisor:?Yes - Yaa Holloway, ED SUPERVISOR [employer] HISTORY This evaluation was conducted remotely with the assistance of onsite staff via HIPAA-compliant video call. Patient consented to proceed with the telehealth visit. Requested by:?GUSTABO Mendez Sources of information:?Patient, medical record, History of Present Illness:? 69 yo male Hx myasthenia, autoimmune hepatitis, depression presented with worsening depression and SI over past several weeks. Recent discharge from [facility] 6 weeks ago. Reports symptoms became worse after transition from escitalopram to fluoxetine this past Friday. reports concern for patient's safety and patient reports not feeling safe at home with the SI/HI. Psych consult for evaluation. Meds: fluoxetine 10mg qday, lorazepam 0.5mg qid prn, mirtazapine 15mg qHS Patient gave consent for family to be present for telehealth assessment. On assessment, patient is oriented to self, date, month, year, location. Patient reports he's at the hospital because he's having some sort of adverse reaction to Prozac as prescribed. Reports he wasn't doing well with Lexapro with still high anxiety/depression and SI. Was switched to Prozac on Friday and symptoms of anxiety/depression and SI worsened thereafter. Onset of anxiety/depression symptoms in February and was hospitalization at [facility] for anxiety/depression/SI. Denies plan/intent. Associated symptoms include anhedonia, negative rumination (I'm not a good person/I don't belong here), hopelessness., decreased motivation, poor concentration, low energy, decreased appetite with 15lb wt loss over weeks and having to force self to eat, difficulty falling asleep and waking up tired, having anxiety attacks in AM and catastrophizing, sleeping around 12 hours/day. Denies AV hallucinations. Additionally, patient recently had thoughts of harm to others without a plan (thought about hurting a almita who made fun of him in high school). Denies EtOH or drugs currently. Stopped EtOH/marijuana 40 years ago. No prior detox/withdraw symptoms. Reports symptoms worsen with progress of myasthenia gravis and increased treatment needs. Had prior trials of Cymbalta, Lexapro, and currently Prozac. T: 36.6 HR 78 R 15 BP 127/71 sat 98% wt 72.575kg BMI 23 Labs: WBC 4.21 h/h 14.1/43.7 Na 139 K 4.1 BUN/Cr 25/1.1 glu 82 AST/ALT 26/32 TSH 1.46 UA negative UDS negative Collateral Contacted Contacted Charo Eid-- ([phone]). Collateral reports patient poses immediate safety concerns and needs inpatient hospitalization. Collateral reports patient has no access to firearms. PSYCHIATRIC REVIEW OF SYSTEMS (symptoms in past two weeks) Pertinent Positives:?depressed mood/anhedonia/hopelessness/negative ruminations/hypersomnia/poor appetite/anergia/homicidal ideation/agitation/anxiety Pertinent Negatives:?no irritability/no aggressive behavior/no auditory hallucinations/no visual hallucinations PSYCHIATRIC HISTORY Past Psychiatric Diagnoses/Problems:?anxiety disorder, depressive disorder Psychiatric Treatment:?Hospitalizations:?recent discharge from psychiatric hospital, Discharged from [facility] 6 weeks ago after a two week hospitalization ???Other Past treatment:?medication management ???Current treatment:?medication management Drug/Alcohol History ???Current excessive drug/alcohol use:?none ???Past excessive drug/alcohol use:?cannabis, alcohol ???Drug/alcohol use comment:?Treatment:?none ???Withdrawal symptoms:?none ???UDS results:?UDS negative ???BAL results:?not ordered ???Active withdrawal Protocol:? Stressors:?medical comorbidity, exacerbation of mental illness Trauma:?none Family Psychiatric History:?psychiatric disorders requiring psychiatric hospitalization, mom - depression/anxiety HEALTH HISTORY Medical Problems:? hyperlipidemia, myasthenia gravis, autoimmune hepatitis Is patient linked with PCP? Psychiatric and other clinically relevant medications:?fluoxetine 10mg qday, lorazepam 0.5mg qid prn, mirtazapine 15mg qHS, Allergies/Adverse Medication Reactions:?mercaptopurine, azathioprine Physical Findings:?T: 36.6 HR 78 R 15 BP 127/71 sat 98% wt 72.575kg BMI 23 Labs: WBC 4.21 h/h 14.1/43.7 Na 139 K 4.1 BUN/Cr 25/1.1 glu 82 AST/ALT 26/32 TSH 1.46 UA negative UDS negative DEMOGRAPHICS/SOCIAL HISTORY Gender:?male Living Situation:?living with family Relationship Status:? Education:?some college Employment:?retired Social Support Network:?supportive social network of family or friends Legal History:?none Special Considerations:? RISK EVALUATION Suicidality/self-injury:?no history of suicidal/self-harming behavior Primary Suicide Screening (PSS-3) 1. In the past two weeks, have you felt down, depressed, or hopeless??YES 2. In the past two weeks, have you had thoughts of killing yourself??YES 3. In your lifetime, have you ever attempted to kill yourself??NO 3a. Within the past 6 months??NO ESS-6 Secondary Screen ( If #2 is yes or #3a is yes within the past 6 months, then complete secondary screen) 1. Positive on PSS-3 questions 2 & 3 ? active suicidal ideation with a past attempt??NO 2. Have you been thinking about how you might kill yourself??NO 3. Have you had some intention of acting on your thoughts??NO 4. Lifetime psychiatric hospitalization??YES 5. Has drinking or substance abuse ever been a problem for you??YES 6. Current irritability, agitation, or aggression??YES PSS-3/ESS-6 Secondary Screen Scoring:?Moderate PSS-3/ESS-6 Scoring Interpretation Legend PSS-3 screen incomplete [Blank PSS-3 questions #2 OR #3a] PSS-3 screen unable to assess [Unable to Assess responses on PSS-3 questions #2 AND #3a] Mild [No current attempt AND No suicide plan or intent AND Score (0-2)] Moderate [No current attempt AND Active suicidal ideation with plan or intent (not both) OR Score (3-4)] Severe [Current attempt OR Suicide plan and intent OR Score (5-6)] HI/Violence/Property Destruction:?no history of violent/aggressive behavior Access to Firearms:?none. Collateral reports patient has no access to firearms. Grave disability/Poor self-care:?no Psychosis:?No Protective Factors:? High Utilization Criteria:? Signs of Secondary Gain:? MENTAL STATUS EXAM Appearance and Attire:? Good eye contact, Unkempt Psychomotor agitation:? No abnormality Attitude and behavior:? Cooperative Speech:? Slow Mood:? Depressed, Anxious Affect:? Restricted Thought Process:? Coherent Thought content:? Suicidal ideation, Homicidal ideation, Reports SI/HI without plan/intent Perception:? No auditory hallucinations, No visual hallucinations Intelligence:? Average Abstraction:? [place] Language:? No abnormality Orientation:? Oriented to person, Oriented to place, Oriented to time, Oriented to situation Sensorium:? Normal Knowledge:? Appropriate for education and socioeconomic status Memory:? Intact Insight:? Appropriate Judgment:? Appropriate SUMMARY RISK ASSESSMENT Current Suicide Risk Elevated??PSS-3/ESS-6 Scoring: Moderate? Current Violence Risk Elevated??No Issues with ability to care for self.?No SAFE-T Risk Factors Suicidal Behavior:? ??History of prior suicide attempts ??Aborted suicide attempt ??History of prior SI ??Self-injurious behavior Current/Past Psychiatric Disorders:? ?Mood disorders ??Psychotic Disorders ? History of inpatient hospitalization ??ADHD ??TBI ??PTSD ??Cluster B personality disorders ??Conduct disorders ? Medical comorbidity ??Recent onset of illness Current/Past Substance Use:? ??Active ETOH/Opiates/Other Substance abuse ? History of ETOH/Opiates/Other Substance abuse ??Active withdrawal or risk of withdrawal from ETOH/Opiate Tobin Symptoms:? ? Anhedonia ??Impulsivity ? Hopelessness ? Anxiety/Panic ??Global insomnia (difficulty falling asleep, maintaining sleep, or falling back to sleep) ??Command Hallucinations Family History Risk Factors:? ??Suicide Attempts ? Psychiatric disorders requiring hospitalization ??Suicidal Behavior Precipitants/Stressors/Interpersonal/Triggers:? ??Events leading to humiliation, shame, or despair ??Family turmoil/chaos ??Chronic physical pain or other acute medical problems ??Perceived burden on others ??Ongoing medical illness ??History of physical or sexual abuse ??Legal problems ??Intoxication ??Social isolation ??Inadequate social support Treatment:? ? Medication management ??Therapy ??Satisfied with current treatment ? Recent discharge from a psychiatric hospital ??Recent change in provider or treatment ??Access to firearms/ammunition Protective Factors Internal:? ??Ability to cope with stress ??Identifies reasons for living ??Frustration tolerance ??Pentecostal beliefs ??Fear of or the actual act of killing self External:? ??Cultural factors against suicide ??Beloved pets ??Engaged in work or school ??Spiritual and/or moral attitudes against suicide ? Supportive social network of family or friends ??Responsibility to children/others ??Positive therapeutic relationships
--- NOTE | 2024-05-08 19:07 | PDOC.MHCN ---
Date of service: 05/08/24 Time of Service: 19:09 PHQ-9 Over the last 2 weeks, how often have you been bothered by any of the following problems? 1. Little interest or pleasure in doing things: nearly every day 2. Feeling down, depressed, or hopeless: nearly every day 3. Trouble falling or staying asleep, or sleeping too much: more than half the days 4. Feeling tired or having little energy: nearly every day 5. Poor appetite or overeating: nearly every day 6. Feeling bad about yourself - or that you are a failure or have let yourself and your family down: more than half the days 7. Trouble concentrating on things, such as reading the newspaper or watching television: nearly every day 8. Moving or speaking so slowly that other people could have noticed? - Or the opposite - being so fidgety or restless that you have been moving around a lot more than usual: nearly every day 9. Thoughts that you would be better off or of hurting yourself in some way: more than half the days Total score: 24 If you checked off any problems, how difficult have these problems made it for you to do your work, take care of things at home, or get along with other people?: extremely difficult PHQ-9 Results: Positive Source: Developed by Drs. Rashid Carter, Lily Gottlieb, Anthony Dalton and colleagues, with an educational mann from [employer]. Suicide Severity Rate CSSRS Have you wished you were or wished you could go to sleep and not wake up?: Yes Have you actually had any thoughts of killing yourself?: Yes CSSRS2 Have you been thinking about how you might do this?: No Have you had these thoughts and had some intention of acting on them?: No Have you started to work out or worked out the details of how to kill yourself? Do you intend to carry out this plan?: No CSSRS3 Have you ever done anything, started to do anything or prepared to do anything to end your life?: No Screening Score Total Score: 4 Screening: Positive Mental Health Emergency Note Release [facility] release signed:: Yes Reason for Visit The client is unknown to [facility] or this clinician. Intake was completed today. The client was recently hospitalized at [facility] from March 28 to April 05. He was last seen by his primary care provider on Friday this past week. His continuality with appointments is unknown to this clinician. In the last 2 weeks has the pt presented for ES prior to today?: Yes, presented at [facility] ED Client Information Client is: New Well Housed: Yes Non Suicidal Self Injury Current: No History: No Safety Risk/Harm to Self or Others Current Ideation to Harm Self or Others: No Risk: Does risk to harm exist?: No Risk: Moderate Risk Duty to warn indicated: No Asssessment/Mental Status Appearance: Unremarkable Attitude: Cooperative and Friendly Behavior: Unremarkable Speech: Normal Affect: Flat and Cogruent with mood Mood: Depressed and Anxious Thought process: Goal directed Hallucinations: No Delusions: No Attention: Unremarkable Perception: Not impaired Orientation: Fully orientated Memory: Intact Insight: Good Judgement: Good Neurovegetative Symptoms Sleep: No change Appetitie: No change Interests: Decrease Energy: Decrease Libido: Not applicable Substance Use: Do you use nicotine?: No Have you used substances in the last 7 days?: No Additional Issues: Assaultive/Threatening Behavior: No Medical Concerns: No Client engaged in active self harm w/weapon: No Threatening to run away: No Child reported abuse/neglect: No Voluntarily presenting for services: Yes Domestic violence is a concern: No Extreme Psychosis or extreme behavior is present: No Impression The client tonight, a history of suicide attempts. The client engaged in all screening tools, including the CSSRS. At this time this clinician is not [facility]'s trained so this tool could not be used during this assessment. The client is requesting a voluntary inpatient stay to stabilize his medication and get him feeling less depressed and anxious. [facility] was made aware of the clients voluntary admission to [facility]. The client is a 69-year-old, , male who lives with his in [place], [place]. He uses He/Him pronouns. 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 All underrepresented categories Were honored during this assessment. The client presents to the emergency department with his appearing of set age. He is cooperative and engaged during the assessment. His affect appears flat. His thought process is goal oriented to feel better. The client shows good insight and judgment and makes good eye contact. The client reported his sleep is good his appetite Has only been good because he's making himself noting that he is not getting the hunger sensation to eat. He denies hallucinations note observations of delusions were noted. The client is showing good insight and judgment. Client reported he had a change from his prescription of Lexapro that was prescribed him this past Friday to Prozac because he wasn't feeling any different. He reports since taking the Prozac his suicidal thoughts have increased. Even though the client is having thoughts of suicide that have increased since taking this medication, he reports his intent zero out of 10. Plan/Disposition Recommended Disposition: Hospitalization facilities contacted. Plan: The client will remain at [facility] pending a voluntary admission to a hospital. Referrals will be sent to [facility], [facility], and [facility]. He will be evaluated daily until placement is found. Person reported agreement to plan: Yes Facilities contacted if Applicable Other: Other not accepted Other Reports/communication Outcome discussed with: ED/Personnel
[2024-05-08] MEDS: Simvastatin 40 MG TAB PO (19:13)
[2024-05-08] MEDS: Mirtazapine 15 MG TAB PO (19:14)
--- NOTE | 2024-05-08 21:03 | NUR.NOTE ---
Nursing Note: Spoke with nurse Hicks at the [facility] and they are very interested in taking the patient. They are working on determining if there is a prior authorization for insurance purposes and would hope to take the patient tomorrow morning.
--- NOTE | 2024-05-09 07:04 | ED.PROG_ITS ---
Date of service: 05/09/24 Time of Service: 07:04 Medical Decision Making In brief, this is a 69-year-old male patient with a past medical history significant for depression, anxiety, and myasthenia gravis, presenting for evaluation of depression with suicidal ideation. At the time that I took over this patient's care he had been medically cleared, and was awaiting transport to [place] for ongoing psychiatric care. He was voluntary, transport was arranged, and he remained hemodynamically appropriate while under my care. He left our facility without incident. Rosalia Arellano MD Medical Records Medical records reviewed: Yes I reviewed the patient's medical records. Lab Data Lab results reviewed: Yes I reviewed the patient's lab results. Quality:[facility] Health Related Social Needs: No Data to Display Sign Out Sign Out Data: Sign Out Comment: pending consult and telepsych for med recommendations for worsening depression and SI. Last updated by Ny Nazario PA at 05/08/24 15:24 Sign Out Comment: 69-year-old male here with suicidal ideation after being changed to fluoxetine from escitalopram. He is currently pending voluntary placement excepted at [place] in the AM. Did have telepsych consultation here recommend sertraline instead which was changed. Patient was also recently discharged from [facility] approximately 6 weeks ago. History of myasthenia gravis and autoimmune hepatitis. Last updated by Yaa Holloway NP at 05/08/24 23:00 Sign Out Comment: Patient stable throughout the night. No interventions needed. Pending placement in the morning to the [facility]. Last updated by Paco Ovalles DO at 05/09/24 06:52 Discharge Plan Discharge Details Chief Complaint: PsychEval Primary Care Provider: Sylvia Moyer ED Provider: Rosalia Arellano Home Meds and New Rx's Prescriptions: No Action fluoxetine 10 mg capsule 10 mg PO DAILY Qty: 90 1RF ibuprofen [Advil] 200 mg tablet 200 mg PO Q6H PRN pyridostigmine bromide 60 mg tablet 60 mg PO TID mycophenolate mofetil 500 mg tablet 1,500 mg PO BID sildenafil 50 mg tablet 50 mg PO DAILY PRN Rx Instructions: administer 30 minutes to 4 hours before activity loratadine [Allergy Relief (loratadine)] 10 mg tablet 10 mg PO DAILY multivitamin Tablet 1 tab PO DAILY simvastatin 40 mg tablet 40 mg PO DAILY Qty: 90 3RF lorazepam 0.5 mg tablet 0.5 mg PO QID MDD 4 tablets PRN (Reason: anxiety) Qty: 30 1RF mirtazapine 15 mg tablet 15 mg PO QHS Qty: 90 1RF
[2024-05-09] MEDS: Sertraline 50 MG TAB PO (08:35)
[2024-05-09] MEDS: Loratidine 10 MG TAB PO (08:35)
[2024-05-09] MEDS: LORazepam 0.5 MG TAB PO (09:00)
[2024-05-09 09:06] VITALS: BP 114/74; PULSE 75; RESP 16; TEMP 36.2; O2SAT 100
== END 2024-05-09 09:15 ==
PROVIDERS: Physician Assistant; Emergency Provider Emergency Medicine; PCP Nurse Practitioner Family
DX: R45.851 Suicidal ideations (principal); F33.2 Major depressive disorder, recurrent severe without psychotic features; F41.9 Anxiety disorder, unspecified; G70.89 Other specified myoneural disorders
CPT/HCPCS: 00123; 36415; 80053; 80307; 96127; 99285; 81003; 84443; 85025; J7517

== ENCOUNTER 2024-07-07 02:20 | Outpatient (CLI) | payer MEDICARE, SELFPAY ==
[2024-07-07 13:05] LABS: Abs Immature Grans 0.02 10^3/uL (0.0-0.06); Absolute Basophil Count 0.02 10^3/uL (0.0-0.2); Absolute Eosinophil Count 0.15 10^3/uL (0.0-0.7); Absolute Lymphocyte Count 0.83 10^3/uL (1.2-3.4); Absolute Monocyte Count 0.35 10^3/uL (0.1-0.8); Absolute Neutrophil Count 2.74 10^3/uL (1.2-6.7); Basophils % 0.5 %; Eosinophils % 3.6 %; HGB 11.8 g/dL (13.5-17.5); Immature Grans % 0.5 %; Lymphocytes % 20.2 %; MCH 30.3 pg (27.0-33.0); MCHC 31.9 % (32.0-36.0); MCV 95 fL (80-95); MPV 9.8 fL (8.0-11.0); Monocytes % 8.5 %; Neutrophils % 66.7 %; Platelet Count 170 10^3/uL (130-400); RBC 3.89 10^6/uL (4.36-5.78); RDW 12.7 % (11.8-14.1); RDW-SD 43.5 fL; WBC 4.11 10^3/uL (4.4-10.8)
[2024-07-07 13:20] LABS: Bilirubin Negative (Negative); Blood Negative (Negative); Clarity Clear (Clear); Glucose Negative (Negative); Ketones Negative (Negative); Leukocyte Esterase Negative (Negative); Nitrite Negative (Negative); Specific Gravity >= 1.030 (1.005-1.025); Urobilinogen 0.2 mg/dL (Up to 0.2); pH 5.5 (5-8)
[2024-07-07 13:30] LABS: Bacteria Negative HPF (Negative); Epithelial Cells Negative HPF (Negative); RBC Negative HPF (0-2); WBC Negative HPF (0-5)
[2024-07-07 13:31] LABS: C & S Indicated? No; Casts Negative LPF (Negative); Crystals Negative HPF (Negative); Mucus Negative (Negative)
[2024-07-07 13:48] LABS: ALT 30 U/L (16-63); AST 25 U/L (15-37); Albumin 3.4 g/dL (3.4-5.0); Alkaline Phosphatase 75 U/L (46-116); Bilirubin, Direct 0.1 mg/dL (0.0-0.2); Bilirubin, Total 0.24 mg/dL (0.2-1.0); Total Protein 6.5 g/dL (6.4-8.2)
[2024-07-07 22:58] LABS: Rheumatoid Factor <8.6 IU/mL (<12.0)
[2024-07-08 09:39] LABS: C3 Complement 137 mg/dL (81-157); C4 Complement 24 mg/dL (13-39); IgA 205 mg/dL (85-499); IgG 795 mg/dL (610-1616); IgM 26 mg/dL (35-242)
[2024-07-08 15:11] LABS: Albumin 58.9 % (55.8-66.1); Albumin g/dL 3.8 g/dL (3.6-5.2); Immunotyping, Serum (See Note); Total Protein 6.4 g/dL (6.3-8.2)
== END 2024-07-07 02:21 | disposition home or self-care (01) ==
PROVIDERS: Internal Medicine; PCP Nurse Practitioner Family; Visit Provider Psychiatry & Neurology Neurology
DX: G70.00 Myasthenia gravis without (acute) exacerbation (principal); K75.9 Inflammatory liver disease, unspecified; M35.00 Sjogren syndrome, unspecified
CPT/HCPCS: 36415; 80076; 82784; 81003; 81015; 82595; 84155; 84165; 85025; 86160; 86320; 86431

== ENCOUNTER 2024-11-02 14:27 | Outpatient (CLI) | payer MEDICARE, SELFPAY ==
[2024-11-02 14:08] LABS: Abs Immature Grans 0.01 10^3/uL (0.0-0.06); Absolute Basophil Count 0.02 10^3/uL (0.0-0.2); Absolute Eosinophil Count 0.05 10^3/uL (0.0-0.7); Absolute Lymphocyte Count 0.91 10^3/uL (1.2-3.4); Absolute Monocyte Count 0.34 10^3/uL (0.1-0.8); Absolute Neutrophil Count 3.98 10^3/uL (1.2-6.7); Basophils % 0.4 %; Eosinophils % 0.9 %; HCT 37.3 % (40.0-50.0); HGB 11.9 g/dL (13.5-17.5); Immature Grans % 0.2 %; Lymphocytes % 17.1 %; MCH 29.5 pg (27.0-33.0); MCHC 31.9 % (32.0-36.0); MCV 92 fL (80-95); MPV 9.5 fL (8.0-11.0); Monocytes % 6.4 %; Platelet Count 164 10^3/uL (130-400); RBC 4.04 10^6/uL (4.36-5.78); RDW 12.2 % (11.8-14.1); RDW-SD 41.1 fL; WBC 5.31 10^3/uL (4.4-10.8)
[2024-11-02 14:49] LABS: ALT 29 U/L (16-63); AST 27 U/L (15-37); Albumin 3.7 g/dL (3.4-5.0); Alkaline Phosphatase 72 U/L (46-116); Anion Gap 6.1 mmol/L (3-11); BUN 34 mg/dL (7-18); Bilirubin, Total 0.3 mg/dL (0.2-1.0); CO2 29.9 mmol/L (21.0-32.0); CREATININE 1.1 mg/dL (0.70-1.30); Calcium 9.1 mg/dL (8.5-10.1); Chloride 109 mmol/L (98-107); Estimated GFR 71.77 (mL/min/1.73m2); Glucose 97 mg/dL (74-106); Potassium 4.6 mmol/L (3.5-5.1); Sodium 145 mmol/L (136-145); Total Protein 6.7 g/dL (6.4-8.2)
== END 2024-11-02 14:28 | disposition home or self-care (01) ==
LOC: LBO 14:27
PROVIDERS: PCP Nurse Practitioner Family; Visit Provider Psychiatry & Neurology Neurology
DX: D84.9 Immunodeficiency, unspecified (principal); G70.00 Myasthenia gravis without (acute) exacerbation
CPT/HCPCS: 36415; 80053; 85025

== ENCOUNTER 2025-02-02 05:10 | Outpatient (CLI) | payer MEDICARE, SELFPAY ==
[2025-02-02 11:32] LABS: Abs Immature Grans 0.01 10^3/uL (0.0-0.06); Absolute Basophil Count 0.02 10^3/uL (0.0-0.2); Absolute Eosinophil Count 0.07 10^3/uL (0.0-0.7); Absolute Lymphocyte Count 0.75 10^3/uL (1.2-3.4); Absolute Monocyte Count 0.44 10^3/uL (0.1-0.8); Absolute Neutrophil Count 2.21 10^3/uL (1.2-6.7); Basophils % 0.6 %; HCT 39.6 % (40.0-50.0); HGB 12.4 g/dL (13.5-17.5); Immature Grans % 0.3 %; Lymphocytes % 21.4 %; MCH 29.4 pg (27.0-33.0); MCHC 31.3 % (32.0-36.0); MCV 94 fL (80-95); MPV 9.8 fL (8.0-11.0); Monocytes % 12.6 %; Neutrophils % 63.1 %; Platelet Count 172 10^3/uL (130-400); RBC 4.22 10^6/uL (4.36-5.78); RDW-SD 44.5 fL
[2025-02-02 11:51] LABS: ALT 21 U/L (16-63); AST 18 U/L (15-37); Albumin 3.8 g/dL (3.4-5.0); Alkaline Phosphatase 72 U/L (46-116); Anion Gap 4.9 mmol/L (3-11); BUN 27 mg/dL (7-18); Bilirubin, Total 0.4 mg/dL (0.2-1.0); CO2 31.1 mmol/L (21.0-32.0); CREATININE 1.2 mg/dL (0.70-1.30); Calcium 8.9 mg/dL (8.5-10.1); Chloride 106 mmol/L (98-107); Estimated GFR 64.65 (mL/min/1.73m2); Glucose 86 mg/dL (74-106); Potassium 4.4 mmol/L (3.5-5.1); Sodium 142 mmol/L (136-145); Total Protein 6.8 g/dL (6.4-8.2)
== END 2025-02-02 05:11 | disposition home or self-care (01) ==
PROVIDERS: PCP Nurse Practitioner Family; Visit Provider Psychiatry & Neurology Neurology
DX: D84.9 Immunodeficiency, unspecified (principal); G70.00 Myasthenia gravis without (acute) exacerbation
CPT/HCPCS: 36415; 80053; 85025

== ENCOUNTER 2025-05-19 04:17 | Outpatient (CLI) | payer MEDICARE, SELFPAY ==
[2025-05-19 09:07] LABS: Calculated LDL 97 mg/dL (<100); Cholesterol 172 mg/dL (<200); HDL Cholesterol 60 mg/dL (>or=40); Triglyceride 78 mg/dL (<150)
[2025-05-19 18:36] LABS: PSA, Screening 3.6 ng/mL (<=6.5)
== END 2025-05-19 04:18 | disposition home or self-care (01) ==
LOC: LBO 04:17
PROVIDERS: PCP Nurse Practitioner Family; Visit Provider Nurse Practitioner Family
DX: E78.5 Hyperlipidemia, unspecified (principal); Z00.00 Encounter for general adult medical examination without abnormal findings; Z12.5 Encounter for screening for malignant neoplasm of prostate
CPT/HCPCS: 36415; 80061; 84153

== ENCOUNTER 2025-06-21 01:22 | Outpatient (CLI) | payer MEDICARE, SELFPAY ==
[2025-06-21 13:33] LABS: Abs Immature Grans 0.01 10^3/uL (0.0-0.06); HCT 37.3 % (40.0-50.0); HGB 11.7 g/dL (13.5-17.5); Immature Grans % 0.2 %; MCH 29.0 pg (27.0-33.0); MCHC 31.4 % (32.0-36.0); MCV 92 fL (80-95); MPV 9.1 fL (8.0-11.0); Platelet Count 174 10^3/uL (130-400); RBC 4.04 10^6/uL (4.36-5.78); RDW 12.2 % (11.8-14.1); RDW-SD 41.8 fL; WBC 4.34 10^3/uL (4.4-10.8)
[2025-06-21 14:51] LABS: ALT 23 U/L (16-63); AST 20 U/L (15-37); Albumin 3.5 g/dL (3.4-5.0); Alkaline Phosphatase 69 U/L (46-116); Anion Gap 5.3 mmol/L (3-11); BUN 33 mg/dL (7-18); Bilirubin, Total 0.3 mg/dL (0.2-1.0); CO2 29.7 mmol/L (21.0-32.0); Calcium 9.0 mg/dL (8.5-10.1); Chloride 107 mmol/L (98-107); Estimated GFR 64.25 (mL/min/1.73m2); Glucose 95 mg/dL (74-106); Potassium 4.6 mmol/L (3.5-5.1); Sodium 142 mmol/L (136-145); Total Protein 6.9 g/dL (6.4-8.2)
== END 2025-06-21 01:23 | disposition home or self-care (01) ==
LOC: LBO 01:22
PROVIDERS: PCP Nurse Practitioner Family; Visit Provider Psychiatry & Neurology Neurology
DX: D84.9 Immunodeficiency, unspecified (principal)
CPT/HCPCS: 36415; 80053; 85025

== ENCOUNTER 2025-08-15 01:43 | Outpatient (CLI) | payer MEDICARE, SELFPAY ==
[2025-08-15 13:46] LABS: Glucose Negative (Negative)
[2025-08-15 13:46] LABS: Abs Immature Grans 0.03 10^3/uL (0.0-0.06); HCT 36.9 % (40.0-50.0); HGB 11.6 g/dL (13.5-17.5); Immature Grans % 0.5 %; MCH 29.1 pg (27.0-33.0); MCHC 31.4 % (32.0-36.0); MCV 93 fL (80-95); MPV 9.7 fL (8.0-11.0); Platelet Count 193 10^3/uL (130-400); RBC 3.98 10^6/uL (4.36-5.78); RDW 12.2 % (11.8-14.1); RDW-SD 41.9 fL; WBC 5.97 10^3/uL (4.4-10.8)
[2025-08-15 14:56] LABS: ALT 17 U/L (10-49); AST 28 U/L (<34); Albumin 4.3 g/dL (3.2-5.0); Alkaline Phosphatase 69 U/L (46-116); Anion Gap 6.9 mmol/L (3-11); BUN 32 mg/dL (9-23); Bilirubin, Total 0.3 mg/dL (0.2-1.2); CO2 28.1 mmol/L (20.0-31.0); Calcium 9.4 mg/dL (8.3-10.6); Chloride 108 mmol/L (98-107); Glucose 106 mg/dL (74-106); Potassium 4.4 mmol/L (3.5-5.1); Sodium 143 mmol/L (136-145); Total Protein 6.9 g/dL (5.7-8.2)
[2025-08-16 15:26] LABS: Albumin 63.4 % (55.8-66.1); Albumin g/dL 4.2 g/dL (3.6-5.2); Alpha 1 g/dL 0.30 g/dL (0.15-0.40); Alpha 2 g/dL 0.70 g/dL (0.50-1.00); Beta g/dL 0.70 g/dL (0.60-1.20); Gamma g/dL 0.80 g/dL (0.60-1.60); Total Protein 6.7 g/dL (6.3-8.2)
== END 2025-08-15 01:44 | disposition home or self-care (01) ==
PROVIDERS: Psychiatry & Neurology Neurology; PCP Nurse Practitioner Family; Visit Provider Internal Medicine Rheumatology
DX: G70.00 Myasthenia gravis without (acute) exacerbation (principal); D84.9 Immunodeficiency, unspecified; M35.01 Sjogren syndrome with keratoconjunctivitis
CPT/HCPCS: 36415; 80053; 82784; 81003; 84155; 84165; 85025; 86160; 86320; 86431